=== PATIENT | male | born 1965 | race Caucasian/White ===

== ENCOUNTER 2017-03-17 14:11 | Inpatient (IN) | payer MEDICARE, OTHER ==
[~2017-03-17] VITALS: Ht 175.3 cm; Wt 90.7 kg
[~2017-03-17 14:11] MED LIST: COMBIVENT0.074 GM/I PO; DULERA 200 MCG8.8 GM PO; LEVEMIR100 UNIT/1 SC
[2017-03-17] MEDS ORDERED: NEURONTIN 300300 MG PO (17:13)
[2017-03-17] MEDS ORDERED: GLUCOPHAGE 500500 MG PO (17:14)
[2017-03-17] MEDS ORDERED: LISINOPRIL20 MG PO (17:14)
[2017-03-17] MEDS ORDERED: FOLTX TABLET1 EACH PO (17:15)
[2017-03-17] MEDS ORDERED: OSTERA TABLET1 EACH PO (17:16)
[2017-03-17] MEDS ORDERED: VIT C-BIOFLAVO1 EACH PO (17:17)
[2017-03-17] MEDS ORDERED: CALCIUM + D3 E1 EACH PO (17:17)
[2017-03-17] MEDS ORDERED: NORCO 7.5-3251 EACH PO (17:17)
[2017-03-17] MEDS ORDERED: BAYER CHEWABLE81 MG PO (17:18)
[2017-03-17 19:09] LABS: HEMOGLOBIN 13.8 gm/dl (14.0-17.5); RED BLOOD COUNT 4.5 M/UL (4.20-5.50); WHITE BLOOD COUNT 11.7 K/UL (4.5-11.0)
[2017-03-17 19:35] LABS: BUN/CREATININE RATIO 8 (0-10)
[2017-03-19 06:26] LABS: BUN/CREATININE RATIO 9 (0-10)
[2017-03-20 04:40] LABS: WHITE BLOOD COUNT 12.2 K/UL (4.5-11.0)
[2017-03-20 04:42] LABS: HEMOGLOBIN 11.8 gm/dl (14.0-17.5); RED BLOOD COUNT 3.9 M/UL (4.20-5.50)
[2017-03-20 05:01] LABS: BUN/CREATININE RATIO 13 (0-10)
[2017-03-21 05:36] LABS: RED BLOOD COUNT 4.02 M/UL (4.20-5.50)
[2017-03-21 06:00] LABS: BUN/CREATININE RATIO 13 (0-10)
[2017-03-22 04:57] LABS: RED BLOOD COUNT 3.73 M/UL (4.20-5.50); WHITE BLOOD COUNT 10.5 K/UL (4.5-11.0)
[2017-03-22 05:09] LABS: BUN/CREATININE RATIO 10 (0-10)
[2017-03-23 05:14] LABS: HEMOGLOBIN 11.3 gm/dl (14.0-17.5); RED BLOOD COUNT 3.81 M/UL (4.20-5.50); WHITE BLOOD COUNT 12.3 K/UL (4.5-11.0)
[2017-03-23 05:29] LABS: BUN/CREATININE RATIO 9 (0-10)
[2017-03-24 04:50] LABS: HEMOGLOBIN 12.7 gm/dl (14.0-17.5); WHITE BLOOD COUNT 11.6 K/UL (4.5-11.0)
[2017-03-24 04:53] LABS: RED BLOOD COUNT 4.22 M/UL (4.20-5.50)
[2017-03-24 05:13] LABS: BUN/CREATININE RATIO 9 (0-10)
[2017-03-25 03:09] LABS: HEMOGLOBIN 11.8 gm/dl (14.0-17.5); RED BLOOD COUNT 3.93 M/UL (4.20-5.50); WHITE BLOOD COUNT 11.3 K/UL (4.5-11.0)
[2017-03-25 03:31] LABS: BUN/CREATININE RATIO 10 (0-10)
[2017-03-26 04:47] LABS: HEMOGLOBIN 11.2 gm/dl (14.0-17.5); RED BLOOD COUNT 3.82 M/UL (4.20-5.50); WHITE BLOOD COUNT 11.3 K/UL (4.5-11.0)
[2017-03-26 04:57] LABS: BUN/CREATININE RATIO 17 (0-10)
[2017-03-26] MEDS ORDERED: NESINA25 MG PO (21:18)
[2017-03-26] MEDS ORDERED: LIPITOR40 MG PO (21:19)
[2017-03-26] MEDS ORDERED: LEVEMIR100 UNIT/1 SQ (21:20)
[2017-03-26] MEDS ORDERED: LOPRESSOR 25 MG25 MG PO (21:21)
[2017-03-26] MEDS ORDERED: PLAVIX 75 MG TA75 MG PO (21:22)
== END 2017-03-26 21:42 | disposition home or self-care (01) | DRG 617 ==
LOC: MED SURG 4 14:11
PROVIDERS: Internal Medicine; Podiatrist Foot & Ankle Surgery; ADMIT Emergency Medicine
PROC: B41D1ZZ Fluoroscopy of Aorta and Bilateral Lower Extremity Arteries using Low Osmolar Contrast (ICD-10-PCS; principal; 2017-03-20)
PROC: 047Q3ZZ Dilation of Left Anterior Tibial Artery, Percutaneous Approach (ICD-10-PCS; principal; 2017-03-20)
PROC: 0HRMXK3 Replacement of Right Foot Skin with Nonautologous Tissue Substitute, Full Thickness, External Approach (ICD-10-PCS; 2017-03-25)
PROC: 0HRNXK3 Replacement of Left Foot Skin with Nonautologous Tissue Substitute, Full Thickness, External Approach (ICD-10-PCS; 2017-03-25)
PROC: 3E00X29 Introduction of Other Anti-infective into Skin and Mucous Membranes, External Approach (ICD-10-PCS; 2017-03-25)
PROC: 0LBV0ZZ Excision of Right Foot Tendon, Open Approach (ICD-10-PCS; 2017-03-25)
PROC: 0Y6Y0Z1 Detachment at Left 5th Toe, High, Open Approach (ICD-10-PCS; 2017-03-25)
PROC: 0JBQ0ZZ Excision of Right Foot Subcutaneous Tissue and Fascia, Open Approach (ICD-10-PCS; 2017-03-25)
DX: E11.621 Type 2 diabetes mellitus with foot ulcer (principal); L97.429 Non-pressure chronic ulcer of left heel and midfoot with unspecified severity; M86.9 Osteomyelitis, unspecified; L03.116 Cellulitis of left lower limb; F20.0 Paranoid schizophrenia; I70.292 Other atherosclerosis of native arteries of extremities, left leg; E11.65 Type 2 diabetes mellitus with hyperglycemia; E11.42 Type 2 diabetes mellitus with diabetic polyneuropathy; L97.519 Non-pressure chronic ulcer of other part of right foot with unspecified severity; E11.69 Type 2 diabetes mellitus with other specified complication; F17.210 Nicotine dependence, cigarettes, uncomplicated; Z91.11 Patient's noncompliance with dietary regimen; Z91.14 Patient's other noncompliance with medication regimen; Z79.4 Long term (current) use of insulin; I10 Essential (primary) hypertension; E78.5 Hyperlipidemia, unspecified; I20.9 Angina pectoris, unspecified; G89.29 Other chronic pain; M54.5 Low back pain; K64.9 Unspecified hemorrhoids; J44.9 Chronic obstructive pulmonary disease, unspecified; Z89.411 Acquired absence of right great toe; Z86.14 Personal history of Methicillin resistant Staphylococcus aureus infection; Z80.0 Family history of malignant neoplasm of digestive organs; Z80.8 Family history of malignant neoplasm of other organs or systems; Z83.3 Family history of diabetes mellitus; R07.9 Chest pain, unspecified; H91.90 Unspecified hearing loss, unspecified ear; Z79.84 Long term (current) use of oral hypoglycemic drugs; Z79.82 Long term (current) use of aspirin; Z79.891 Long term (current) use of opiate analgesic; Z79.899 Other long term (current) drug therapy
CPT/HCPCS: ECHO; 36245; 36415; 73630; 73718; 75630; 78452; 80048; 80053; 80061; 80202; 82550; 82553; 82962; 83036; 84484; 85025; 85027; 85347; 85610; 85730; 86850; 86900; 86901; 87070; 87075; 87205; 93005; 93017; 93306; 93925; 94640; 94664; A9502; C1713; C1725; C1769; J1100; J1580; J1644; J2250; J2405; J2785; J3010; J3370; J7030; J7040; J7070; J7120; Q4133; Q9965

== ENCOUNTER → 2017-07-23 | Outpatient (CLI) | payer MEDICARE ==
[~2017-07-23] VITALS: Ht 175.3 cm; Wt 90.7 kg
[~2017-07-23] MED LIST changes: +BAYER CHEWABLE81 MG PO; +CALCIUM + D3 E1 EACH PO; +FOLTX TABLET1 EACH PO; +GLUCOPHAGE 500500 MG PO; +LEVEMIR100 UNIT/1 SQ; +LIPITOR40 MG PO; +LISINOPRIL20 MG PO; +LOPRESSOR 25 MG25 MG PO; +NESINA25 MG PO; +NEURONTIN 300300 MG PO; +NORCO 7.5-3251 EACH PO; +OSTERA TABLET1 EACH PO; +PLAVIX 75 MG TA75 MG PO; +VIT C-BIOFLAVO1 EACH PO
== END ==
LOC: OPSV 08:00
DX: E11.40 Type 2 diabetes mellitus with diabetic neuropathy, unspecified (principal); M86.171 Other acute osteomyelitis, right ankle and foot; L08.89 Other specified local infections of the skin and subcutaneous tissue; L03.115 Cellulitis of right lower limb; L97.512 Non-pressure chronic ulcer of other part of right foot with fat layer exposed; M79.671 Pain in right foot; M79.604 Pain in right leg
CPT/HCPCS: 96365; 96366; J2407; J7070

== ENCOUNTER 2020-11-16 00:22 | Inpatient (IN) | payer MEDICARE, MEDICAID ==
[~2020-11-16] VITALS: Ht 177.8 cm; Wt 99.3 kg
[~2020-11-16 00:22] MED LIST changes: +AMOX TR-K CLV1 EAC3 PO; +ASPIR 8181 MG PO; +ASPIRIN EC81 MG PO; +ASPIRIN81 MG PO; +ATORVASTATIN CA20 MG PO; +AUGMENTIN 875-1 EACH PO; +BUMEX 1MG TABLET1 MG PO; +CALCIUM ACETAT667 M1 PO; +CHRONULAC20 GM/30 M PO; +CLOPIDOGREL75 MG PO; +CONSTULOSE10 GM/15 M PO; +FERROUS SULFAT325 M2 PO; +FISH OIL 1,0001 EAC1 PO; +FLOMAX 0.4 MG0.4 MG PO; +GABAPENTIN300 MG PO; +HUMALOG 10100 UNITS/ SC; +HYDRALAZINE HCL25 MG PO; +IMDUR ER TAB 3030 MG PO; +IPRAT-ALBUT 0.5-3 ML NEB; +KRISTALOSE20 GM PO; +LANTUS INS100 UTS/M1 SC; +LASIX20 MG PO; +LEVAQUIN500 MG PO; +LEVAQUIN750 MG PO; +LEVEMIR FL100 UNIT/1 SQ; +LOPRESSOR 50 MG50 MG PO; +NEBULIZER UNIT; +NEURONTIN800 MG PO; +NICOTINE PATCH1 EAC2 TD; +NICOTINE PATCH1 EAC2 TOP; +NORCO 10-325 T1 EACH PO; -NORCO 7.5-3251 EACH PO; +PANTOPRAZOLE SO40 MG PO; +SYMBICORT 160-1 INHA INH; +VITAMIN C 500500 MG PO; +VITAMIN C500 M1 PO; +VITAMIN D1000 UNI1 PO; +VITAMIN D325 MCG PO
[2020-11-16 03:04] LABS: HEMOGLOBIN 11.4 gm/dl (14.0-17.5); RED BLOOD COUNT 3.82 M/UL (4.20-5.50); WHITE BLOOD COUNT 8.5 K/UL (4.5-11.0)
[2020-11-16 03:42] LABS: BUN/CREATININE RATIO 6 (0-10)
[2020-11-16] MEDS ORDERED: CALCIUM ACETAT667 M1 PO (23:09)
--- NOTE | 2020-11-17 05:17 | NUR ---
0500 [facility] NOTIFIED ME THAT PATIENT WAS SITTING IN THE FLOOR. I ASKED THE PATIENT IF HE HAD FALLEN AND HE STATED THAT HE WAS USING THE BEDSIDE COMMODE AND THEN SLIPPED OFF OF IT INTO THE FLOOR. PATIENT ASSESSED, NO TRAUMA NOTED. DR. BARBOSA NOTIFIED AT 0515 AND GAVE NO NEW ORDERS. PATIENT HAD BEEN USING HIS CALL LIGHT ALL NIGHT FOR ASSISTANCE AND IS ALERT AND ORIENTED. CALL LIGHT WAS ALSO WITHIN REACH IN HIS BED. WHEN I ASKED THE PATIENT WHY HE DID NOT CALL OUT THIS TIME, HE STATED "IT IS EMBARRASSING AND I DID NOT WANT TO BE A BURDEN." REASSURED PATIENT THAT HE WAS NOT A BURDEN AND THAT HE NEEDED TO CALL OUT FOR HELP. EDUCATED PATIENT ON WHY USING THE CALL DUENAS WAS IMPORTANT. PATIENT SCORED UNIVERSAL PRECAUTIONS ON THE JOSEPH FALL SCALE UPON ADMISSION. BED ALARM IS NOW TURNED ON, YELLOW FALL RISK LIGHT IS TURNED ON, FALL RISK BAND APPLIED, AND YELLOW NON-SKID SOCKS WERE APPLIED TO THE PATIENT.
[2020-11-17 05:41] LABS: HEMOGLOBIN 10.1 gm/dl (14.0-17.5); WHITE BLOOD COUNT 7.6 K/UL (4.5-11.0)
[2020-11-17 05:43] LABS: RED BLOOD COUNT 3.38 M/UL (4.20-5.50)
--- NOTE | 2020-11-17 05:55 | NUR ---
0571 [facility] [employer] MANAGER NOTIFIED OF PATIENT FALL
--- NOTE | 2020-11-17 06:12 | NUR ---
HOME MEDS HAVE NOT BEEN RECONCILED YET WHICH IS WHY THEY WERE NOT SCANNED TO PHARMACY FOR REVIEW
[2020-11-18 07:08] LABS: HEMOGLOBIN 10.2 gm/dl (14.0-17.5); RED BLOOD COUNT 3.41 M/UL (4.20-5.50); WHITE BLOOD COUNT 7.3 K/UL (4.5-11.0)
[2020-11-19 08:10] LABS: HBSAG SCREEN Negative (Negative)
[2020-11-20 03:53] LABS: HEMOGLOBIN 9.2 gm/dl (14.0-17.5); RED BLOOD COUNT 3.1 M/UL (4.20-5.50); WHITE BLOOD COUNT 6.7 K/UL (4.5-11.0)
[2020-11-20] MEDS ORDERED: GABAPENTIN400 MG PO (08:51)
[2021-02-19] MEDS ORDERED: LEVOFLOXACIN500 MG PO (09:30)
[2021-02-19] MEDS ORDERED: IPRAT-ALBUT 0.5-3 ML NEB (09:30)
== END 2020-11-20 18:15 | disposition home health service (06) | DRG 291 ==
LOC: ER1 00:22 → CDU 05:11 → M/S 05:11
PROVIDERS: Family Medicine; Internal Medicine; Internal Medicine Nephrology; Physician Assistant; Physician Assistant Medical; ADMIT Internal Medicine
PROC: 5A1D70Z Performance of Urinary Filtration, Intermittent, Less than 6 Hours Per Day (ICD-10-PCS; principal; 2020-11-16)
PROC: 5A1D70Z Performance of Urinary Filtration, Intermittent, Less than 6 Hours Per Day (ICD-10-PCS; 2020-11-20)
DX: I13.2 Hypertensive heart and chronic kidney disease with heart failure and with stage 5 chronic kidney disease, or end stage renal disease (principal); N18.6 End stage renal disease; I50.33 Acute on chronic diastolic (congestive) heart failure; I50.32 Chronic diastolic (congestive) heart failure; Z91.15 Patient's noncompliance with renal dialysis; J44.9 Chronic obstructive pulmonary disease, unspecified; I51.9 Heart disease, unspecified; I10 Essential (primary) hypertension; F17.210 Nicotine dependence, cigarettes, uncomplicated; Z83.3 Family history of diabetes mellitus; Z82.49 Family history of ischemic heart disease and other diseases of the circulatory system; Z20.822 Contact with and (suspected) exposure to COVID-19; M13.862 Other specified arthritis, left knee; E11.22 Type 2 diabetes mellitus with diabetic chronic kidney disease; Z99.2 Dependence on renal dialysis; R60.1 Generalized edema; E11.621 Type 2 diabetes mellitus with foot ulcer; L97.529 Non-pressure chronic ulcer of other part of left foot with unspecified severity; E11.51 Type 2 diabetes mellitus with diabetic peripheral angiopathy without gangrene; E11.610 Type 2 diabetes mellitus with diabetic neuropathic arthropathy; F20.9 Schizophrenia, unspecified; Z96.651 Presence of right artificial knee joint; D64.9 Anemia, unspecified; Z99.3 Dependence on wheelchair; K21.9 Gastro-esophageal reflux disease without esophagitis; Z79.4 Long term (current) use of insulin; M51.36 Other intervertebral disc degeneration, lumbar region
CPT/HCPCS: 36415; 71045; 73562; 73630; 80048; 80053; 80202; 82550; 82553; 82962; 83874; 84484; 85025; 85027; 85652; 86140; 87040; 87070; 87077; 87186; 87205; 87340; 90471; 90935; 90937; 93005; 96374; 97161; 99285; J1335; J3370; J7030; J7070; U0002

== ENCOUNTER 2020-11-29 10:31 | Observation (INO) | payer MEDICARE ==
[~2020-11-29] VITALS: Ht 175.3 cm; Wt 99.8 kg
[~2020-11-29 10:31] MED LIST changes: +GABAPENTIN400 MG PO
[2020-11-29 11:35] LABS: HEMOGLOBIN 10.4 gm/dl (14.0-17.5); RED BLOOD COUNT 3.48 M/UL (4.20-5.50); WHITE BLOOD COUNT 6.6 K/UL (4.5-11.0)
[2020-11-29 12:06] LABS: BUN/CREATININE RATIO 9 (0-10)
[2020-11-29] MEDS ORDERED: NEURONTIN800 MG PO (14:16)
[2020-11-29] MEDS ORDERED: LEVEMIR100 UNIT/1 SC (14:19)
[2020-11-29] MEDS ORDERED: CITRATE OF MAG296 ML PO (14:20)
[2020-11-29] MEDS ORDERED: LOPRESSOR50 MG PO (23:13)
[2020-11-30 02:34] LABS: HEMOGLOBIN 8.9 gm/dl (14.0-17.5); WHITE BLOOD COUNT 6.6 K/UL (4.5-11.0)
[2020-11-30 02:43] LABS: RED BLOOD COUNT 2.97 M/UL (4.20-5.50)
[2020-12-01 03:06] LABS: HEMOGLOBIN 8.2 gm/dl (14.0-17.5); RED BLOOD COUNT 2.73 M/UL (4.20-5.50); WHITE BLOOD COUNT 6.6 K/UL (4.5-11.0)
[2020-12-01] MEDS ORDERED: LEVOFLOXACIN500 MG PO (08:44)
[2020-12-01] MEDS ORDERED: INVANZ 1 GM VIAL1 GM IM (10:44)
[2021-02-19] MEDS ORDERED: LEVOFLOXACIN500 MG PO (09:30)
[2021-02-19] MEDS ORDERED: IPRAT-ALBUT 0.5-3 ML NEB (09:30)
== END 2020-12-01 12:00 | disposition home or self-care (01) ==
LOC: ER1 10:31 → CDU 13:24 → PROG CARE 13:24
PROVIDERS: Emergency Medicine; Internal Medicine Nephrology; Physician Assistant Medical; ADMIT Internal Medicine
DX: J96.21 Acute and chronic respiratory failure with hypoxia (principal); J96.22 Acute and chronic respiratory failure with hypercapnia; L03.116 Cellulitis of left lower limb; L03.115 Cellulitis of right lower limb; E11.621 Type 2 diabetes mellitus with foot ulcer; L97.429 Non-pressure chronic ulcer of left heel and midfoot with unspecified severity; L97.419 Non-pressure chronic ulcer of right heel and midfoot with unspecified severity; I13.2 Hypertensive heart and chronic kidney disease with heart failure and with stage 5 chronic kidney disease, or end stage renal disease; E11.22 Type 2 diabetes mellitus with diabetic chronic kidney disease; N18.6 End stage renal disease; I50.33 Acute on chronic diastolic (congestive) heart failure; E11.51 Type 2 diabetes mellitus with diabetic peripheral angiopathy without gangrene; M86.671 Other chronic osteomyelitis, right ankle and foot; F20.9 Schizophrenia, unspecified; E11.40 Type 2 diabetes mellitus with diabetic neuropathy, unspecified; E87.5 Hyperkalemia; F17.210 Nicotine dependence, cigarettes, uncomplicated; I25.10 Atherosclerotic heart disease of native coronary artery without angina pectoris; J44.1 Chronic obstructive pulmonary disease with (acute) exacerbation; E78.5 Hyperlipidemia, unspecified; Z99.2 Dependence on renal dialysis; Z91.15 Patient's noncompliance with renal dialysis; Z20.822 Contact with and (suspected) exposure to COVID-19; Z89.421 Acquired absence of other right toe(s); Z82.49 Family history of ischemic heart disease and other diseases of the circulatory system; Z88.1 Allergy status to other antibiotic agents; Z79.82 Long term (current) use of aspirin; Z79.4 Long term (current) use of insulin; Z79.899 Other long term (current) drug therapy
CPT/HCPCS: 36415; 36600; 71045; 80048; 80053; 80069; 81001; 82550; 82553; 82728; 82803; 82962; 83540; 83550; 83605; 83735; 83874; 83880; 84132; 84484; 85025; 85027; 87040; 87070; 87077; 87186; 87205; 90471; 90935; 93005; 94640; 94660; 94664; 94760; 96365; 96375; 99285; G0257; G0378; J1335; J1644; J1956; J3370; J7030; J7070; U0002

== ENCOUNTER 2020-12-18 05:08 | Inpatient (IN) | payer MEDICARE, MEDICAID ==
[~2020-12-18] VITALS: Ht 175.3 cm; Wt 107.3 kg
[~2020-12-18 05:08] MED LIST changes: +CITRATE OF MAG296 ML PO; +INVANZ 1 GM VIAL1 GM IM; +LEVOFLOXACIN500 MG PO; +LOPRESSOR50 MG PO
[2020-12-18 05:24] LABS: HEMOGLOBIN 9.4 gm/dl (14.0-17.5); RED BLOOD COUNT 3.19 M/UL (4.20-5.50); WHITE BLOOD COUNT 10.8 K/UL (4.5-11.0)
--- NOTE | 2020-12-19 01:09 | NUR ---
PATIENT IS NON COMPLIANT WITH MONITORING. INSTRUCTED PATIENT NOT TO AMBULATE WITHOUT ASSISTANCE, PATIENT AGREED ALTHOUGH PATIENT IS IMPULSIVE. EXPLAINED THE POSSIBILITY OF FALLS, PATIENT VERBALIZED UNDERSTANDING. PT IS CURRENTLY LAYING DOWN ON THE COUCH IN HIS ROOM, CALL DUENAS IS WITHIN REACH. INSTRUCTED PATIENT TO CALL FOR WANTS/NEEDS/AMBULATION.
[2020-12-19 02:28] LABS: HEMOGLOBIN 8.4 gm/dl (14.0-17.5)
[2020-12-19 02:32] LABS: RED BLOOD COUNT 2.81 M/UL (4.20-5.50); WHITE BLOOD COUNT 6.9 K/UL (4.5-11.0)
--- NOTE | 2020-12-19 06:44 | NUR ---
SPOKE WITH PATIENT'S , JASON, AT APPROXIMATELY 0430; SHE IS CONCERNED THAT THE PATIENT WILL BE DISCHARGED TOO EARLY AND WOULD LIKE FOR HIM TO STAY THROUGH THE ICE STORM LATER THIS WEEK. PATIENT HAS BECOME INCREASINGLY CONFUSED THROUGHOUT THE NIGHT AND HAS NOT SLEPT.
[2020-12-19 11:15] LABS: HBSAG SCREEN Negative (Negative); HEP A AB, IGM Negative (Negative); HEP B CORE AB, IGM Negative (Negative); HEP C VIRUS AB 0.1 (0.0-0.9)
[2020-12-20] MEDS ORDERED: PROTONIX 40 MG40 M1 PO (11:05)
[2020-12-20] MEDS ORDERED: NICOTINE PATCH1 EAC2 TD (11:05)
[2021-02-19] MEDS ORDERED: IPRAT-ALBUT 0.5-3 ML NEB (09:30)
[2021-02-19] MEDS ORDERED: LEVOFLOXACIN500 MG PO (09:30)
== END 2020-12-20 16:37 | disposition home or self-care (01) | DRG 291 ==
LOC: ER1 05:08 → PROG CARE 07:11 → CDU 07:11 → PROG CARE 15:47
PROVIDERS: Emergency Medicine; Internal Medicine Nephrology; ADMIT Hospitalist
PROC: 5A1D70Z Performance of Urinary Filtration, Intermittent, Less than 6 Hours Per Day (ICD-10-PCS; principal; 2020-12-18)
PROC: 5A1D70Z Performance of Urinary Filtration, Intermittent, Less than 6 Hours Per Day (ICD-10-PCS; 2020-12-19)
DX: I13.2 Hypertensive heart and chronic kidney disease with heart failure and with stage 5 chronic kidney disease, or end stage renal disease (principal); N18.6 End stage renal disease; I50.33 Acute on chronic diastolic (congestive) heart failure; Z20.822 Contact with and (suspected) exposure to COVID-19; E11.22 Type 2 diabetes mellitus with diabetic chronic kidney disease; E11.621 Type 2 diabetes mellitus with foot ulcer; J44.9 Chronic obstructive pulmonary disease, unspecified; E11.51 Type 2 diabetes mellitus with diabetic peripheral angiopathy without gangrene; F20.9 Schizophrenia, unspecified; D64.9 Anemia, unspecified; G89.29 Other chronic pain; E11.21 Type 2 diabetes mellitus with diabetic nephropathy; M51.36 Other intervertebral disc degeneration, lumbar region; E11.40 Type 2 diabetes mellitus with diabetic neuropathy, unspecified; Z96.651 Presence of right artificial knee joint; Z95.820 Peripheral vascular angioplasty status with implants and grafts; Z99.2 Dependence on renal dialysis; Z89.429 Acquired absence of other toe(s), unspecified side; Z88.1 Allergy status to other antibiotic agents; Z99.81 Dependence on supplemental oxygen; Z91.15 Patient's noncompliance with renal dialysis; Z80.0 Family history of malignant neoplasm of digestive organs; Z83.3 Family history of diabetes mellitus; Z87.891 Personal history of nicotine dependence; Z79.82 Long term (current) use of aspirin; Z79.899 Other long term (current) drug therapy
CPT/HCPCS: 36415; 36600; 71045; 80048; 80053; 80074; 80202; 82550; 82553; 82728; 82803; 82962; 83540; 83550; 84484; 85025; 85027; 87040; 90935; 90937; 93005; 94640; 94660; 94664; 94760; 96365; 96366; 96368; 96375; 99285; J1200; J2185; J2405; J3370; J7030; J7070; U0002

== ENCOUNTER 2020-12-24 21:10 | Inpatient (IN) | payer MEDICARE ==
[~2020-12-24] VITALS: Ht 175.3 cm; Wt 99.8 kg
[~2020-12-24 21:10] MED LIST changes: +PROTONIX 40 MG40 M1 PO
[2020-12-24 21:55] LABS: HEMOGLOBIN 8.5 gm/dl (14.0-17.5); RED BLOOD COUNT 2.84 M/UL (4.20-5.50); WHITE BLOOD COUNT 7.7 K/UL (4.5-11.0)
[2020-12-24 22:20] LABS: BUN/CREATININE RATIO 8 (0-10)
[2020-12-26 04:21] LABS: HEMOGLOBIN 7.6 gm/dl (14.0-17.5)
[2020-12-26 04:26] LABS: RED BLOOD COUNT 2.53 M/UL (4.20-5.50); WHITE BLOOD COUNT 3.7 K/UL (4.5-11.0)
[2020-12-27 03:25] LABS: HEMOGLOBIN 7.9 gm/dl (14.0-17.5); RED BLOOD COUNT 2.64 M/UL (4.20-5.50)
[2020-12-27 03:34] LABS: WHITE BLOOD COUNT 5.6 K/UL (4.5-11.0)
[2020-12-28 04:25] LABS: HEMOGLOBIN 7.9 gm/dl (14.0-17.5); RED BLOOD COUNT 2.62 M/UL (4.20-5.50); WHITE BLOOD COUNT 6.4 K/UL (4.5-11.0)
[2020-12-30 06:09] LABS: HEMOGLOBIN 8.3 gm/dl (14.0-17.5); RED BLOOD COUNT 2.79 M/UL (4.20-5.50); WHITE BLOOD COUNT 5.8 K/UL (4.5-11.0)
[2020-12-31 04:47] LABS: HEMOGLOBIN 8.7 gm/dl (14.0-17.5); RED BLOOD COUNT 2.93 M/UL (4.20-5.50)
[2020-12-31 04:58] LABS: WHITE BLOOD COUNT 7.6 K/UL (4.5-11.0)
[2020-12-31] MEDS ORDERED: DECADRON6 MG PO (19:22)
[2020-12-31] MEDS ORDERED: NORVASC10 MG PO (19:22)
--- NOTE | 2021-01-01 10:19 | NUR ---
0900 MEDICATION NOT GIVEN DUE TO PATIENT GONE TO DIALYSIS
[2021-02-19] MEDS ORDERED: LEVOFLOXACIN500 MG PO (09:30)
[2021-02-19] MEDS ORDERED: IPRAT-ALBUT 0.5-3 ML NEB (09:30)
== END 2021-01-01 17:47 | disposition home or self-care (01) | DRG 177 ==
LOC: ER1 21:10 → MED SURG 4 23:57 → CDU 23:57 → MED SURG 4 12-25 21:02
PROVIDERS: Family Medicine; Internal Medicine Infectious Disease; ADMIT Internal Medicine
PROC: 8E0ZXY6 Isolation (ICD-10-PCS; principal; 2020-12-24)
PROC: XW033E5 Introduction of Remdesivir Anti-infective into Peripheral Vein, Percutaneous Approach, New Technology Group 5 (ICD-10-PCS; 2020-12-27)
PROC: XW13325 Transfusion of Convalescent Plasma (Nonautologous) into Peripheral Vein, Percutaneous Approach, New Technology Group 5 (ICD-10-PCS; 2020-12-29)
DX: U07.1 COVID-19 (principal); J12.82 Pneumonia due to coronavirus disease 2019; J96.21 Acute and chronic respiratory failure with hypoxia; I50.33 Acute on chronic diastolic (congestive) heart failure; N18.6 End stage renal disease; I13.2 Hypertensive heart and chronic kidney disease with heart failure and with stage 5 chronic kidney disease, or end stage renal disease; L03.119 Cellulitis of unspecified part of limb; E11.22 Type 2 diabetes mellitus with diabetic chronic kidney disease; J44.9 Chronic obstructive pulmonary disease, unspecified; R00.1 Bradycardia, unspecified; D63.1 Anemia in chronic kidney disease; E11.40 Type 2 diabetes mellitus with diabetic neuropathy, unspecified; G89.4 Chronic pain syndrome; E87.5 Hyperkalemia; K21.9 Gastro-esophageal reflux disease without esophagitis; E11.51 Type 2 diabetes mellitus with diabetic peripheral angiopathy without gangrene; E11.65 Type 2 diabetes mellitus with hyperglycemia; T38.0X5A Adverse effect of glucocorticoids and synthetic analogues, initial encounter; K59.00 Constipation, unspecified; Z96.651 Presence of right artificial knee joint; F20.9 Schizophrenia, unspecified; E11.21 Type 2 diabetes mellitus with diabetic nephropathy; E11.649 Type 2 diabetes mellitus with hypoglycemia without coma; M51.36 Other intervertebral disc degeneration, lumbar region; Z88.1 Allergy status to other antibiotic agents; Z80.9 Family history of malignant neoplasm, unspecified; Z99.81 Dependence on supplemental oxygen; Z95.820 Peripheral vascular angioplasty status with implants and grafts; Z99.2 Dependence on renal dialysis; Z91.15 Patient's noncompliance with renal dialysis; Z83.3 Family history of diabetes mellitus; Z89.429 Acquired absence of other toe(s), unspecified side; Z87.891 Personal history of nicotine dependence; Z79.82 Long term (current) use of aspirin; Z79.899 Other long term (current) drug therapy
CPT/HCPCS: 36415; 36600; 71045; 80048; 80053; 82550; 82553; 82803; 82962; 83690; 83874; 83880; 84484; 85025; 86900; 86901; 86927; 90935; 90937; 93005; 94660; 94664; 94760; 96365; 96366; 96368; 99285; G0378; J0610; J1100; J1644; J7030; Q5105; U0002; U0003

== ENCOUNTER 2021-01-02 21:06 | Inpatient (IN) | payer MEDICARE ==
[~2021-01-02] VITALS: Ht 172.7 cm; Wt 110.0 kg
[~2021-01-02 21:06] MED LIST changes: +DECADRON6 MG PO; +NORVASC10 MG PO
[2021-01-02 22:17] LABS: HEMOGLOBIN 8.9 gm/dl (14.0-17.5); RED BLOOD COUNT 2.92 M/UL (4.20-5.50)
[2021-01-02 22:18] LABS: WHITE BLOOD COUNT 17.5 K/UL (4.5-11.0)
[2021-01-03 01:48] LABS: HEMOGLOBIN 8.5 gm/dl (14.0-17.5); WHITE BLOOD COUNT 17.1 K/UL (4.5-11.0)
[2021-01-03 01:50] LABS: RED BLOOD COUNT 2.48 M/UL (4.20-5.50)
[2021-01-05] MEDS ORDERED: COZAAR 25MG TAB25 MG PO (10:50)
[2021-01-05] MEDS ORDERED: GABAPENTIN300 MG PO (10:50)
[2021-02-19] MEDS ORDERED: IPRAT-ALBUT 0.5-3 ML NEB (09:30)
[2021-02-19] MEDS ORDERED: LEVOFLOXACIN500 MG PO (09:30)
== END 2021-01-05 13:44 | disposition home or self-care (01) | DRG 208 ==
LOC: ER1 21:06 → CDU 23:20 → CCU 23:20 → 2 EAST 01-03 00:36 → CCU 01-03 02:37
PROVIDERS: Emergency Medicine; Internal Medicine Nephrology; ADMIT Internal Medicine
PROC: 5A1945Z Respiratory Ventilation, 24-96 Consecutive Hours (ICD-10-PCS; principal; 2021-01-02)
PROC: 0BH17EZ Insertion of Endotracheal Airway into Trachea, Via Natural or Artificial Opening (ICD-10-PCS; 2021-01-02)
PROC: 5A1D70Z Performance of Urinary Filtration, Intermittent, Less than 6 Hours Per Day (ICD-10-PCS; 2021-01-03)
DX: J96.01 Acute respiratory failure with hypoxia (principal); N18.6 End stage renal disease; I13.2 Hypertensive heart and chronic kidney disease with heart failure and with stage 5 chronic kidney disease, or end stage renal disease; I50.32 Chronic diastolic (congestive) heart failure; E87.1 Hypo-osmolality and hyponatremia; E87.70 Fluid overload, unspecified; I10 Essential (primary) hypertension; Z86.16 Personal history of COVID-19; E11.22 Type 2 diabetes mellitus with diabetic chronic kidney disease; E11.621 Type 2 diabetes mellitus with foot ulcer; L97.529 Non-pressure chronic ulcer of other part of left foot with unspecified severity; L97.519 Non-pressure chronic ulcer of other part of right foot with unspecified severity; E11.51 Type 2 diabetes mellitus with diabetic peripheral angiopathy without gangrene; F20.9 Schizophrenia, unspecified; D72.829 Elevated white blood cell count, unspecified; F17.210 Nicotine dependence, cigarettes, uncomplicated; Z96.651 Presence of right artificial knee joint; Z91.19 Patient's noncompliance with other medical treatment and regimen; Z98.890 Other specified postprocedural states; Z88.1 Allergy status to other antibiotic agents; Z83.3 Family history of diabetes mellitus; Z80.9 Family history of malignant neoplasm, unspecified; I27.20 Pulmonary hypertension, unspecified; J44.9 Chronic obstructive pulmonary disease, unspecified
CPT/HCPCS: 31500; 36415; 36600; 71045; 80048; 80053; 81001; 82550; 82553; 82803; 82962; 83874; 83880; 84484; 85025; 87086; 90935; 90937; 93005; 94002; 94003; 94640; 94760; 96374; 99285; C9113; G0378; J1100; J1644; J2704

== ENCOUNTER 2021-01-11 19:52 | Emergency (ER) | payer MEDICARE ==
[~2021-01-11] VITALS: Ht 180.3 cm; Wt 99.8 kg
[~2021-01-11 19:52] MED LIST changes: +COZAAR 25MG TAB25 MG PO
[2021-01-11 21:01] LABS: RED BLOOD COUNT 3.01 M/UL (4.20-5.50); WHITE BLOOD COUNT 12.7 K/UL (4.5-11.0)
[2021-01-11 21:24] LABS: BUN/CREATININE RATIO 12 (0-10)
[2021-01-12 04:57] LABS: HEMOGLOBIN 7.7 gm/dl (14.0-17.5)
[2021-01-12 05:00] LABS: RED BLOOD COUNT 2.54 M/UL (4.20-5.50); WHITE BLOOD COUNT 8.6 K/UL (4.5-11.0)
[2021-02-19] MEDS ORDERED: LEVOFLOXACIN500 MG PO (09:30)
[2021-02-19] MEDS ORDERED: IPRAT-ALBUT 0.5-3 ML NEB (09:30)
== END 2021-01-12 17:53 | disposition home or self-care (01) ==
LOC: ER1 19:52 → CDU 23:17 → ER1 23:17 → CDU 01-12 17:30 → ER1 01-12 17:53
PROVIDERS: Emergency Medicine; Internal Medicine
DX: U07.1 COVID-19 (principal); I13.2 Hypertensive heart and chronic kidney disease with heart failure and with stage 5 chronic kidney disease, or end stage renal disease; I50.32 Chronic diastolic (congestive) heart failure; E11.51 Type 2 diabetes mellitus with diabetic peripheral angiopathy without gangrene; E11.22 Type 2 diabetes mellitus with diabetic chronic kidney disease; L97.529 Non-pressure chronic ulcer of other part of left foot with unspecified severity; E11.621 Type 2 diabetes mellitus with foot ulcer; E66.01 Morbid (severe) obesity due to excess calories; J44.9 Chronic obstructive pulmonary disease, unspecified; E87.5 Hyperkalemia; F20.9 Schizophrenia, unspecified; M51.36 Other intervertebral disc degeneration, lumbar region; J96.02 Acute respiratory failure with hypercapnia; J96.01 Acute respiratory failure with hypoxia; N18.6 End stage renal disease; E11.42 Type 2 diabetes mellitus with diabetic polyneuropathy; Z88.1 Allergy status to other antibiotic agents; Z83.3 Family history of diabetes mellitus; Z79.82 Long term (current) use of aspirin; Z80.9 Family history of malignant neoplasm, unspecified; Z87.01 Personal history of pneumonia (recurrent); Z87.2 Personal history of diseases of the skin and subcutaneous tissue; Z79.899 Other long term (current) drug therapy; Z91.15 Patient's noncompliance with renal dialysis; Z91.19 Patient's noncompliance with other medical treatment and regimen; Z68.30 Body mass index [BMI] 30.0-30.9, adult
CPT/HCPCS: 36600; 71045; 80048; 80053; 82550; 82553; 82803; 82962; 83605; 83690; 83735; 83874; 83880; 84100; 84484; 85025; 87040; 90471; 90937; 93005; 94644; 94660; 94760; 96365; 96366; 96367; 96372; 96375; 96376; 99285; G0257; J1644; J1956; J3370; J7070; U0002

== ENCOUNTER 2021-01-31 04:10 | Inpatient (IN) | payer MEDICARE ==
[~2021-01-31] VITALS: Ht 175.3 cm; Wt 99.8 kg
[2021-01-31 04:33] LABS: HEMOGLOBIN 8.7 gm/dl (14.0-17.5); RED BLOOD COUNT 2.97 M/UL (4.20-5.50); WHITE BLOOD COUNT 14.4 K/UL (4.5-11.0)
[2021-01-31] MEDS ORDERED: ZOFRAN4 MG PO (04:57)
[2021-01-31] MEDS ORDERED: FLOMAX0.4 MG PO (04:57)
[2021-01-31] MEDS ORDERED: TORADOL 10 MG T10 MG PO (04:57)
[2021-01-31] MEDS ORDERED: ALBUTEROL1.25 MG/3 INH (09:35)
[2021-02-01 03:34] LABS: HEMOGLOBIN 7.8 gm/dl (14.0-17.5); RED BLOOD COUNT 2.73 M/UL (4.20-5.50)
[2021-02-01 03:38] LABS: WHITE BLOOD COUNT 6.8 K/UL (4.5-11.0)
[2021-02-19] MEDS ORDERED: IPRAT-ALBUT 0.5-3 ML NEB (09:30)
[2021-02-19] MEDS ORDERED: LEVOFLOXACIN500 MG PO (09:30)
== END 2021-02-01 17:47 | disposition home or self-care (01) | DRG 291 ==
LOC: ER1 04:10 → CDU 05:49 → M/S 16:22
PROVIDERS: Internal Medicine; ADMIT Internal Medicine
PROC: 5A1D70Z Performance of Urinary Filtration, Intermittent, Less than 6 Hours Per Day (ICD-10-PCS; principal; 2021-02-01)
DX: I13.2 Hypertensive heart and chronic kidney disease with heart failure and with stage 5 chronic kidney disease, or end stage renal disease (principal); N18.6 End stage renal disease; J96.21 Acute and chronic respiratory failure with hypoxia; I50.33 Acute on chronic diastolic (congestive) heart failure; I50.32 Chronic diastolic (congestive) heart failure; E87.1 Hypo-osmolality and hyponatremia; E87.70 Fluid overload, unspecified; J44.9 Chronic obstructive pulmonary disease, unspecified; E11.22 Type 2 diabetes mellitus with diabetic chronic kidney disease; E11.42 Type 2 diabetes mellitus with diabetic polyneuropathy; Z20.822 Contact with and (suspected) exposure to COVID-19; F17.210 Nicotine dependence, cigarettes, uncomplicated; F20.9 Schizophrenia, unspecified; E87.5 Hyperkalemia; M47.816 Spondylosis without myelopathy or radiculopathy, lumbar region; D64.9 Anemia, unspecified; Z83.3 Family history of diabetes mellitus; Z99.2 Dependence on renal dialysis; Z86.16 Personal history of COVID-19; Z99.81 Dependence on supplemental oxygen; Z88.1 Allergy status to other antibiotic agents; Z80.9 Family history of malignant neoplasm, unspecified; Z91.14 Patient's other noncompliance with medication regimen
CPT/HCPCS: 36415; 36600; 71045; 80048; 80053; 82803; 82962; 83605; 83880; 84484; 85025; 85610; 85730; 86140; 90935; 93005; 94660; 96365; 96366; 96375; 99285; J1940; J2543; U0002

== ENCOUNTER 2021-02-18 05:14 | Inpatient (IN) | payer MEDICARE ==
[~2021-02-18] VITALS: Ht 175.3 cm; Wt 99.8 kg
[~2021-02-18 05:14] MED LIST changes: +ALBUTEROL1.25 MG/3 INH; +FLOMAX0.4 MG PO; +TORADOL 10 MG T10 MG PO; +ZOFRAN4 MG PO
[2021-02-18 05:51] LABS: RED BLOOD COUNT 3.16 M/UL (4.20-5.50); WHITE BLOOD COUNT 16.1 K/UL (4.5-11.0)
[2021-02-18 06:11] LABS: BUN/CREATININE RATIO 7 (0-10)
[2021-02-18] MEDS ORDERED: NEURONTIN800 MG PO (11:19)
[2021-02-18] MEDS ORDERED: NORVASC5 MG PO (12:00)
[2021-02-19 08:13] LABS: HBSAG SCREEN Negative (Negative); HEP A AB, IGM Negative (Negative); HEP B CORE AB, IGM Negative (Negative); HEP C VIRUS AB <0.1 (0.0-0.9)
[2021-02-19 09:11] LABS: HEMOGLOBIN 8.4 gm/dl (14.0-17.5); RED BLOOD COUNT 3.03 M/UL (4.20-5.50)
[2021-02-19 09:13] LABS: WHITE BLOOD COUNT 10.2 K/UL (4.5-11.0)
[2021-02-19] MEDS ORDERED: LEVOFLOXACIN500 MG PO (09:30)
[2021-02-19] MEDS ORDERED: IPRAT-ALBUT 0.5-3 ML NEB (09:30)
== END 2021-02-19 13:53 | disposition home or self-care (01) | DRG 291 ==
LOC: ER1 05:14 → CDU 06:00 → PROG CARE 06:00
PROVIDERS: Family Medicine; Internal Medicine Nephrology; ADMIT Internal Medicine
PROC: 5A09357 Assistance with Respiratory Ventilation, Less than 24 Consecutive Hours, Continuous Positive Airway Pressure (ICD-10-PCS; principal; 2021-02-18)
DX: I13.2 Hypertensive heart and chronic kidney disease with heart failure and with stage 5 chronic kidney disease, or end stage renal disease (principal); I50.23 Acute on chronic systolic (congestive) heart failure; J96.01 Acute respiratory failure with hypoxia; J18.9 Pneumonia, unspecified organism; N18.6 End stage renal disease; J44.0 Chronic obstructive pulmonary disease with (acute) lower respiratory infection; E78.5 Hyperlipidemia, unspecified; Z20.822 Contact with and (suspected) exposure to COVID-19; E11.22 Type 2 diabetes mellitus with diabetic chronic kidney disease; F17.210 Nicotine dependence, cigarettes, uncomplicated; F20.9 Schizophrenia, unspecified; E11.40 Type 2 diabetes mellitus with diabetic neuropathy, unspecified; Z96.651 Presence of right artificial knee joint; Z99.2 Dependence on renal dialysis; Z98.890 Other specified postprocedural states; Z86.16 Personal history of COVID-19; Z91.15 Patient's noncompliance with renal dialysis; Z99.81 Dependence on supplemental oxygen; Z88.1 Allergy status to other antibiotic agents; Z83.3 Family history of diabetes mellitus; Z80.9 Family history of malignant neoplasm, unspecified; Z79.4 Long term (current) use of insulin
CPT/HCPCS: 36415; 36600; 71045; 80048; 80053; 80074; 80202; 82550; 82553; 82803; 82962; 83605; 83880; 84484; 85025; 87040; 90935; 90937; 93005; 94640; 94660; 94664; 94760; 99285; J2185; J2930; J3370; J7070; U0002

== ENCOUNTER 2021-04-30 11:13 | Inpatient (IN) | payer MEDICARE ==
[~2021-04-30] VITALS: Ht 175.3 cm; Wt 99.8 kg
[~2021-04-30 11:13] MED LIST changes: +NORVASC5 MG PO
[2021-04-30 12:34] LABS: HEMOGLOBIN 10.7 gm/dl (14.0-17.5); RED BLOOD COUNT 3.91 M/UL (4.20-5.50); WHITE BLOOD COUNT 10.6 K/UL (4.5-11.0)
[2021-04-30] MEDS ORDERED: LACTULOSE10 GM/15 M PO (16:11)
[2021-04-30] MEDS ORDERED: CIPROFLOXACIN500 M1 PO (16:13)
[2021-04-30] MEDS ORDERED: IPRAT-ALBUT 0.5-3 ML INH (16:14)
[2021-04-30] MEDS ORDERED: LASIX80 MG PO (16:14)
[2021-05-01 06:56] LABS: HEMOGLOBIN 10.2 gm/dl (14.0-17.5); RED BLOOD COUNT 3.78 M/UL (4.20-5.50)
[2021-05-01 06:59] LABS: WHITE BLOOD COUNT 6.2 K/UL (4.5-11.0)
[2021-05-02 05:10] LABS: RED BLOOD COUNT 3.65 M/UL (4.20-5.50); WHITE BLOOD COUNT 6.9 K/UL (4.5-11.0)
--- NOTE | 2021-05-02 16:30 | NUR ---
MRI HERE TO GET PT ,PT REFUSES
--- NOTE | 2021-05-02 23:52 | NUR ---
PT REFUSING FOR ME TO DO HIS BID DRESSING CHANGES ON HIS FEET. EXPLAINED TO PT IMPORTANCE OF HAVING DRESSINGS CHANGED.
[2021-05-03 03:54] LABS: HEMOGLOBIN 9.9 gm/dl (14.0-17.5); RED BLOOD COUNT 3.75 M/UL (4.20-5.50); WHITE BLOOD COUNT 7.6 K/UL (4.5-11.0)
[2021-05-04 05:12] LABS: HEMOGLOBIN 9.9 gm/dl (14.0-17.5); RED BLOOD COUNT 3.62 M/UL (4.20-5.50); WHITE BLOOD COUNT 7.1 K/UL (4.5-11.0)
[2021-05-05] MEDS ORDERED: AUGMENTIN 500-1 EACH PO (14:28)
--- NOTE | 2021-05-05 15:47 | NUR ---
patient refuses dressing change. says his will do it.
--- NOTE | 2021-05-06 11:15 | NUR ---
SPOKE WITH CYNDI LUCAS ABOUT PATIENT LEAVING BEFORE HH SET UP. SHE SAID SHE WAS IN CONVERSTAION WITH AND IN PROCESS OF SETTING UP HH WITH [facility].
== END 2021-05-06 10:30 | disposition home or self-care (01) | DRG 622 ==
LOC: ER1 11:13 → CDU 14:52 → MED SURG 4 15:44
PROVIDERS: Family Medicine; Physician Assistant; Physician Assistant Medical; ADMIT Internal Medicine
PROC: 5A1D70Z Performance of Urinary Filtration, Intermittent, Less than 6 Hours Per Day (ICD-10-PCS; 2021-04-30)
PROC: 0JBR0ZZ Excision of Left Foot Subcutaneous Tissue and Fascia, Open Approach (ICD-10-PCS; principal; 2021-05-01)
PROC: 0JBQ0ZZ Excision of Right Foot Subcutaneous Tissue and Fascia, Open Approach (ICD-10-PCS; 2021-05-01)
DX: E11.621 Type 2 diabetes mellitus with foot ulcer (principal); I50.33 Acute on chronic diastolic (congestive) heart failure; I13.2 Hypertensive heart and chronic kidney disease with heart failure and with stage 5 chronic kidney disease, or end stage renal disease; J96.11 Chronic respiratory failure with hypoxia; L97.429 Non-pressure chronic ulcer of left heel and midfoot with unspecified severity; L97.419 Non-pressure chronic ulcer of right heel and midfoot with unspecified severity; M86.672 Other chronic osteomyelitis, left ankle and foot; E66.2 Morbid (severe) obesity with alveolar hypoventilation; L03.116 Cellulitis of left lower limb; L03.115 Cellulitis of right lower limb; E87.1 Hypo-osmolality and hyponatremia; E87.6 Hypokalemia; N18.6 End stage renal disease; E11.51 Type 2 diabetes mellitus with diabetic peripheral angiopathy without gangrene; E11.628 Type 2 diabetes mellitus with other skin complications; Z20.822 Contact with and (suspected) exposure to COVID-19; I87.2 Venous insufficiency (chronic) (peripheral); E11.40 Type 2 diabetes mellitus with diabetic neuropathy, unspecified; J43.9 Emphysema, unspecified; Z96.651 Presence of right artificial knee joint; F20.9 Schizophrenia, unspecified; L08.89 Other specified local infections of the skin and subcutaneous tissue; F17.210 Nicotine dependence, cigarettes, uncomplicated; E11.22 Type 2 diabetes mellitus with diabetic chronic kidney disease; Z91.15 Patient's noncompliance with renal dialysis; Z88.1 Allergy status to other antibiotic agents; Z80.0 Family history of malignant neoplasm of digestive organs; Z83.3 Family history of diabetes mellitus; Z99.2 Dependence on renal dialysis
CPT/HCPCS: 36415; 36600; 71045; 73630; 80048; 80053; 80202; 81001; 82550; 82553; 82803; 82962; 83735; 83874; 83880; 84100; 84484; 85025; 85027; 86140; 87070; 87077; 87186; 87205; 90935; 90937; 90947; 93925; 94660; 94760; 99285; J2185; J2543; J3370; J7070; U0002

== ENCOUNTER 2021-07-10 14:33 | Observation (INO) | payer MEDICARE ==
[~2021-07-10 14:33] MED LIST changes: +AUGMENTIN 500-1 EACH PO; +CIPROFLOXACIN500 M1 PO; +IPRAT-ALBUT 0.5-3 ML INH; +LACTULOSE10 GM/15 M PO; +LASIX80 MG PO
[2021-07-10 15:50] LABS: HEMOGLOBIN 11.4 gm/dl (14.0-17.5); RED BLOOD COUNT 4.02 M/UL (4.20-5.50); WHITE BLOOD COUNT 12.7 K/UL (4.5-11.0)
[2021-07-11 03:50] LABS: HEMOGLOBIN 11.7 gm/dl (14.0-17.5); RED BLOOD COUNT 4.12 M/UL (4.20-5.50); WHITE BLOOD COUNT 11.6 K/UL (4.5-11.0)
[2021-07-12 08:15] LABS: HBSAG SCREEN Negative (Negative); HEP A AB, IGM Negative (Negative); HEP B CORE AB, IGM Negative (Negative); HEP C VIRUS AB 0.1 (0.0-0.9)
== END 2021-07-11 12:00 | disposition left against medical advice (07) ==
LOC: ER1 14:33 → CDU 17:10
PROVIDERS: Internal Medicine Nephrology; Physician Assistant Medical; Student in an Organized Health Care Education/Training Program; ADMIT Internal Medicine
DX: E87.70 Fluid overload, unspecified (principal); I13.2 Hypertensive heart and chronic kidney disease with heart failure and with stage 5 chronic kidney disease, or end stage renal disease; E11.22 Type 2 diabetes mellitus with diabetic chronic kidney disease; N18.6 End stage renal disease; I50.33 Acute on chronic diastolic (congestive) heart failure; J44.9 Chronic obstructive pulmonary disease, unspecified; J96.21 Acute and chronic respiratory failure with hypoxia; E11.21 Type 2 diabetes mellitus with diabetic nephropathy; E11.621 Type 2 diabetes mellitus with foot ulcer; L97.529 Non-pressure chronic ulcer of other part of left foot with unspecified severity; L97.519 Non-pressure chronic ulcer of other part of right foot with unspecified severity; F17.210 Nicotine dependence, cigarettes, uncomplicated; R91.8 Other nonspecific abnormal finding of lung field; E11.51 Type 2 diabetes mellitus with diabetic peripheral angiopathy without gangrene; F60.1 Schizoid personality disorder; E11.69 Type 2 diabetes mellitus with other specified complication; M86.8X9 Other osteomyelitis, unspecified sites; Z20.822 Contact with and (suspected) exposure to COVID-19; Z99.2 Dependence on renal dialysis; Z91.15 Patient's noncompliance with renal dialysis; Z91.14 Patient's other noncompliance with medication regimen; Z99.81 Dependence on supplemental oxygen; Z88.1 Allergy status to other antibiotic agents; Z98.890 Other specified postprocedural states
CPT/HCPCS: 71045; 80048; 80053; 80074; 82550; 82553; 82962; 83735; 83880; 84484; 85025; 85027; 90935; 93005; 94760; 99285; G0257; G0378; U0002

== ENCOUNTER 2021-08-05 12:24 | Inpatient (IN) | payer MEDICARE ==
[~2021-08-05] VITALS: Ht 170.2 cm; Wt 104.3 kg
[2021-08-05 12:46] LABS: HEMOGLOBIN 10.9 gm/dl (14.0-17.5); RED BLOOD COUNT 3.76 M/UL (4.20-5.50); WHITE BLOOD COUNT 21.8 K/UL (4.5-11.0)
[2021-08-06 02:10] LABS: HEMOGLOBIN 10.5 gm/dl (14.0-17.5); RED BLOOD COUNT 3.66 M/UL (4.20-5.50); WHITE BLOOD COUNT 21.2 K/UL (4.5-11.0)
[2021-08-07 03:27] LABS: HEMOGLOBIN 9.4 gm/dl (14.0-17.5); RED BLOOD COUNT 3.31 M/UL (4.20-5.50)
[2021-08-07 03:34] LABS: WHITE BLOOD COUNT 12.5 K/UL (4.5-11.0)
--- NOTE | 2021-08-07 09:28 | NUR ---
CALLED [facility] IN DIALYSIS TO CONFIRM PATIENT IS SCHEDULED FOR DIALYSIS TODAY.
--- NOTE | 2021-08-08 11:55 | NUR ---
CALL FROM DIALYSIS. PATIENT WILL BE RETURNING TO UNIT. 2100ML TAKEN OFF DURING DIALYSIS. TRANSPORT CALLED
[2021-08-08] MEDS ORDERED: AUGMENTIN 875-1 EACH PO (14:04)
[2021-08-08] MEDS ORDERED: ISOTON GEN100 MG/50 IV (14:04)
== END 2021-08-08 14:45 | disposition home health service (06) | DRG 871 ==
LOC: ER1 12:24 → CDU 14:25 → PROG CARE 14:25
PROVIDERS: Emergency Medicine; Internal Medicine Infectious Disease; Physician Assistant; ADMIT Internal Medicine
PROC: 5A09457 Assistance with Respiratory Ventilation, 24-96 Consecutive Hours, Continuous Positive Airway Pressure (ICD-10-PCS; principal; 2021-08-05)
PROC: 5A1D70Z Performance of Urinary Filtration, Intermittent, Less than 6 Hours Per Day (ICD-10-PCS; 2021-08-05)
DX: A41.52 Sepsis due to Pseudomonas (principal); N18.6 End stage renal disease; J96.21 Acute and chronic respiratory failure with hypoxia; G93.41 Metabolic encephalopathy; Z20.822 Contact with and (suspected) exposure to COVID-19; I13.2 Hypertensive heart and chronic kidney disease with heart failure and with stage 5 chronic kidney disease, or end stage renal disease; I50.32 Chronic diastolic (congestive) heart failure; E87.1 Hypo-osmolality and hyponatremia; M86.672 Other chronic osteomyelitis, left ankle and foot; B96.5 Pseudomonas (aeruginosa) (mallei) (pseudomallei) as the cause of diseases classified elsewhere; E11.51 Type 2 diabetes mellitus with diabetic peripheral angiopathy without gangrene; Z96.651 Presence of right artificial knee joint; E11.621 Type 2 diabetes mellitus with foot ulcer; L97.529 Non-pressure chronic ulcer of other part of left foot with unspecified severity; L97.519 Non-pressure chronic ulcer of other part of right foot with unspecified severity; B96.1 Klebsiella pneumoniae [K. pneumoniae] as the cause of diseases classified elsewhere; F20.9 Schizophrenia, unspecified; E11.69 Type 2 diabetes mellitus with other specified complication; Z91.14 Patient's other noncompliance with medication regimen; Z99.2 Dependence on renal dialysis; Z87.891 Personal history of nicotine dependence; Z98.890 Other specified postprocedural states; Z88.8 Allergy status to other drugs, medicaments and biological substances; Z80.0 Family history of malignant neoplasm of digestive organs; Z83.3 Family history of diabetes mellitus; Z86.16 Personal history of COVID-19; Z79.899 Other long term (current) drug therapy
CPT/HCPCS: 36415; 36600; 51702; 70450; 71045; 73620; 80048; 80053; 80202; 81001; 82550; 82553; 82803; 82962; 83605; 83690; 83735; 83874; 83880; 84100; 84439; 84443; 84484; 85025; 85610; 85730; 87040; 87086; 90935; 90937; 93005; 94640; 94660; 94664; 94760; 99285; J2185; J2250; J2930; J3370; J7030; J7070; U0002

== ENCOUNTER 2021-08-22 19:25 | Inpatient (IN) | payer MEDICARE ==
[~2021-08-22] VITALS: Ht 175.3 cm; Wt 99.3 kg
[~2021-08-22 19:25] MED LIST changes: +ISOTON GEN100 MG/50 IV
[2021-08-22 20:00] LABS: HEMOGLOBIN 9.7 gm/dl (14.0-17.5); RED BLOOD COUNT 3.33 M/UL (4.20-5.50); WHITE BLOOD COUNT 11.3 K/UL (4.5-11.0)
[2021-08-22] MEDS ORDERED: NITROGLYCERIN0.4 MG SL (23:42)
[2021-08-22] MEDS ORDERED: PROAIR HFA8.5 GM INH (23:42)
[2021-08-23] MEDS ORDERED: LASIX80 MG PO (23:43)
[2021-08-24 01:18] LABS: HEMOGLOBIN 8.8 gm/dl (14.0-17.5); RED BLOOD COUNT 3.03 M/UL (4.20-5.50)
[2021-08-24 01:25] LABS: WHITE BLOOD COUNT 7.4 K/UL (4.5-11.0)
[2021-08-24 09:13] LABS: HBSAG SCREEN Negative (Negative); HEP A AB, IGM Negative (Negative); HEP B CORE AB, IGM Negative (Negative); HEP C VIRUS AB <0.1 (0.0-0.9)
[2021-08-25 03:12] LABS: HEMOGLOBIN 9.6 gm/dl (14.0-17.5); WHITE BLOOD COUNT 7.7 K/UL (4.5-11.0)
[2021-08-25 03:14] LABS: RED BLOOD COUNT 3.34 M/UL (4.20-5.50)
--- NOTE | 2021-08-25 06:10 | NUR ---
PT REFUES FOR IV TO BE DISCONNECTED FROM IV PUMP. " PT STATED JUST LEAVE ME ALONE" EDUCATED PATIENT ON IMPORTANCE OF DISCONNECTED IV PER POLICY, BUT PATIENT REMAINED TO REFUSE.
--- NOTE | 2021-08-25 06:57 | NUR ---
0700- PT REFUSED DAILY WT.
[2021-08-26 03:29] LABS: HEMOGLOBIN 9.1 gm/dl (14.0-17.5); RED BLOOD COUNT 3.21 M/UL (4.20-5.50); WHITE BLOOD COUNT 7.5 K/UL (4.5-11.0)
--- NOTE | 2021-08-26 06:16 | NUR ---
PT REFUSES SOME OF MEDS, PT EDUCATED ON MEDICATIONS AND PT VERBALIZED UNDERSTANDING HOWEVER STILL REFUSED. PT ALSO REFUSES TO GET OUT OF CHAIR AND INTO BED AND ONLY WISHES TO STAY IN CHAIR. PT EDUCATED ON THE RISK OF SKIN BREAKDOWN AND PT VERBALIZED UNDERSTANDING. PT ENCOURAGED TO SHIFT WEIGHT IN CHAIR. PT REFUSED TO BE WEIGHED THIS AM.
[2021-08-27 03:03] LABS: HEMOGLOBIN 8.8 gm/dl (14.0-17.5); RED BLOOD COUNT 3.05 M/UL (4.20-5.50); WHITE BLOOD COUNT 8.2 K/UL (4.5-11.0)
--- NOTE | 2021-08-27 09:41 | NUR ---
DR. GONZALEZ CAME TO FLOOR AND SPOKE WITH PT RE: REQUESTING TO BE DISCHARGED. EXPLAINED IMPORTANE OF PT STAYING AND RECIEVING CARE NEEDED FOR FEET WITH VOICED UNDERSTANDING FROM PT BUT PT STATES HE IS LEAVING NO MATTER WHAT CAUSE HE HAS "HOME DUTIES TO TAKE CARE OF". EXPLAINED IF PT LEFT IT WOULD BE AGAINST MEDICAL ADVICE AND PT VOICED UNDERSTANDING AND CHOSE TO SIGN OUT AMA.
== END 2021-08-27 10:25 | disposition left against medical advice (07) | DRG 871 ==
LOC: ER1 19:25 → PROG CARE 21:45 → CDU 21:45 → PROG CARE 08-23 01:48
PROVIDERS: Family Medicine; Internal Medicine; Internal Medicine Nephrology; ADMIT Internal Medicine
PROC: 5A1D70Z Performance of Urinary Filtration, Intermittent, Less than 6 Hours Per Day (ICD-10-PCS; 2021-08-23)
PROC: B24BZZ4 Ultrasonography of Heart with Aorta, Transesophageal (ICD-10-PCS; principal; 2021-08-26)
PROC: 5A1D70Z Performance of Urinary Filtration, Intermittent, Less than 6 Hours Per Day (ICD-10-PCS; 2021-08-26)
DX: A41.9 Sepsis, unspecified organism (principal); L89.624 Pressure ulcer of left heel, stage 4; L89.614 Pressure ulcer of right heel, stage 4; J96.21 Acute and chronic respiratory failure with hypoxia; J96.22 Acute and chronic respiratory failure with hypercapnia; G93.41 Metabolic encephalopathy; N18.6 End stage renal disease; R53.2 Functional quadriplegia; E11.52 Type 2 diabetes mellitus with diabetic peripheral angiopathy with gangrene; E87.1 Hypo-osmolality and hyponatremia; M86.8X7 Other osteomyelitis, ankle and foot; Z16.24 Resistance to multiple antibiotics; E66.2 Morbid (severe) obesity with alveolar hypoventilation; L03.116 Cellulitis of left lower limb; L03.115 Cellulitis of right lower limb; I50.32 Chronic diastolic (congestive) heart failure; I13.2 Hypertensive heart and chronic kidney disease with heart failure and with stage 5 chronic kidney disease, or end stage renal disease; Z20.822 Contact with and (suspected) exposure to COVID-19; E11.69 Type 2 diabetes mellitus with other specified complication; Z96.651 Presence of right artificial knee joint; D63.1 Anemia in chronic kidney disease; E11.22 Type 2 diabetes mellitus with diabetic chronic kidney disease; F17.210 Nicotine dependence, cigarettes, uncomplicated; E11.621 Type 2 diabetes mellitus with foot ulcer; I08.1 Rheumatic disorders of both mitral and tricuspid valves; J44.9 Chronic obstructive pulmonary disease, unspecified; E11.40 Type 2 diabetes mellitus with diabetic neuropathy, unspecified; F20.9 Schizophrenia, unspecified; Z99.2 Dependence on renal dialysis; Z91.14 Patient's other noncompliance with medication regimen; Z89.421 Acquired absence of other right toe(s); Z68.32 Body mass index [BMI] 32.0-32.9, adult
CPT/HCPCS: ECHO; 36415; 36600; 71045; 73620; 73700; 80053; 80074; 80202; 82009; 82550; 82553; 82803; 82962; 82977; 83036; 83605; 83735; 83874; 83880; 84484; 85025; 85027; 85610; 85652; 86140; 87040; 90937; 93005; 93306; 94640; 94660; 94664; 94760; 96374; 96375; 99285; G0378; J1644; J1650; J1940; J2185; J2543; J3370; J7070; U0002

== ENCOUNTER 2021-09-18 14:32 | Inpatient (IN) | payer MEDICARE, MEDICAID ==
[~2021-09-18] VITALS: Ht 177.8 cm; Wt 92.1 kg
[~2021-09-18 14:32] MED LIST changes: +NITROGLYCERIN0.4 MG SL; +PROAIR HFA8.5 GM INH
[2021-09-18 15:10] LABS: RED BLOOD COUNT 3.43 M/UL (4.20-5.50)
[2021-09-18] MEDS ORDERED: PROVENTIL HFA6.7 GM INH ×2 (21:04→21:05)
[2021-09-18] MEDS ORDERED: AMMONIUM LACTA140 GM TP (21:05)
[2021-09-18] MEDS ORDERED: DAKIN'S473 ML MC (21:06)
[2021-09-18] MEDS ORDERED: HYDROCODON-ACE1 EAC6 PO (21:08)
[2021-09-19 08:36] LABS: RED BLOOD COUNT 3.16 M/UL (4.20-5.50); WHITE BLOOD COUNT 20.6 K/UL (4.5-11.0)
[2021-09-19 10:09] LABS: ACINETOBACTER BAUMANNII Not Detected (Negative); CANDIDA ALBICANS Not Detected (Negative); CANDIDA KRUSEI Not Detected (Negative); CANDIDA TROPICALIS Not Detected (Negative); ENTEROCOCCUS Not Detected (Negative); ESCHERICHIA COLI Not Detected (Negative); HAEMOPHILUS INFLUENZAE Not Detected (Negative); KLEBSIELLA OXYTOCA Not Detected (Negative); KLEBSIELLA PNEUMONIAE Not Detected (Negative); KPC-CARBAPENEM-RESISTANCE GENE Not Detected (Negative); PROTEUS Not Detected (Negative); SERRATIA MARCESANS Not Detected (Negative); STAPHYLOCOCCUS Not Detected (Negative); STAPHYLOCOCCUS AUREUS Not Detected (Negative); STREP AGALACTIAE (GROUP B) Not Detected (Negative); STREP PYOGENES (GROUP A) Not Detected (Negative); STREPTOCOCCUS Not Detected (Negative); mecA (METHICILLIN RESIST GENE Not Detected (Negative); vanA/B (VANCOMYCIN RESIST GENE Not Detected (Negative)
[2021-09-19 11:02] LABS: PSEUDOMONAS AERUGINOSA DETECTED (Negative)
[2021-09-20 05:27] LABS: RED BLOOD COUNT 3.13 M/UL (4.20-5.50); WHITE BLOOD COUNT 9.7 K/UL (4.5-11.0)
[2021-09-21 04:46] LABS: HEMOGLOBIN 9.1 gm/dl (14.0-17.5); RED BLOOD COUNT 3.17 M/UL (4.20-5.50); WHITE BLOOD COUNT 10.8 K/UL (4.5-11.0)
[2021-09-22 02:51] LABS: HEMOGLOBIN 9.4 gm/dl (14.0-17.5); RED BLOOD COUNT 3.31 M/UL (4.20-5.50); WHITE BLOOD COUNT 11.5 K/UL (4.5-11.0)
--- NOTE | 2021-09-23 00:19 | NUR ---
PATIENT REFUSED NIGHT TIME DOSE OF METOPROLOL. PATIENT WAS EDUCATED THAT HE NEEDED THE MEDICATION. PATIENT STILL REFUSED MEDICATION. PATIENT ALSO MADE A COMMENT ABOUT ONLY WANTING HEPARIN ONCE DAILY. PATIENT STATED THAT HE IS NOT GOING TO DO ANY PROCEDURE OR SURGERY UNTIL HE SEES HIS DOGS.
[2021-09-23 03:09] LABS: HEMOGLOBIN 9.8 gm/dl (14.0-17.5); RED BLOOD COUNT 3.47 M/UL (4.20-5.50); WHITE BLOOD COUNT 12.5 K/UL (4.5-11.0)
[2021-09-24 03:24] LABS: HEMOGLOBIN 10.2 gm/dl (14.0-17.5); RED BLOOD COUNT 3.58 M/UL (4.20-5.50); WHITE BLOOD COUNT 14.7 K/UL (4.5-11.0)
[2021-09-24 05:11] LABS: HBSAG SCREEN Negative (Negative); HEP A AB, IGM Negative (Negative); HEP B CORE AB, IGM Negative (Negative); HEP C VIRUS AB <0.1 (0.0-0.9)
[2021-09-24 21:14] LABS: HEMOGLOBIN 10.4 gm/dl (14.0-17.5); RED BLOOD COUNT 3.71 M/UL (4.20-5.50); WHITE BLOOD COUNT 17.4 K/UL (4.5-11.0)
[2021-09-25 03:23] LABS: RED BLOOD COUNT 3.45 M/UL (4.20-5.50); WHITE BLOOD COUNT 16.2 K/UL (4.5-11.0)
[2021-09-25] MEDS ORDERED: ATORVASTATIN CA20 MG PO (16:26)
[2021-09-25] MEDS ORDERED: ASPIRIN EC81 MG PO (16:26)
[2021-09-25] MEDS ORDERED: BRILINTA 90 MG90 MG PO (16:26)
[2021-09-25] MEDS ORDERED: AMIODARONE HCL200 MG PO (16:26)
[2021-09-25] MEDS ORDERED: LOPRESSOR 25 MG25 MG PO (16:26)
[2021-09-25] MEDS ORDERED: CLINDAMYCIN HC300 MG PO (16:33)
[2021-09-25] MEDS ORDERED: LEVOFLOXACIN500 MG PO (16:50)
== END 2021-09-25 16:54 | disposition home or self-care (01) | DRG 853 ==
LOC: ER1 14:32 → CCU 18:43 → CDU 18:43 → PROG CARE 18:43 → CCU 21:02 → PROG CARE 09-21 14:15
PROVIDERS: Internal Medicine; Internal Medicine Interventional Cardiology; Internal Medicine Nephrology; Student in an Organized Health Care Education/Training Program; ADMIT Internal Medicine
PROC: 5A09357 Assistance with Respiratory Ventilation, Less than 24 Consecutive Hours, Continuous Positive Airway Pressure (ICD-10-PCS; 2021-09-18)
PROC: 5A12012 Performance of Cardiac Output, Single, Manual (ICD-10-PCS; principal; 2021-09-19)
PROC: 5A1D70Z Performance of Urinary Filtration, Intermittent, Less than 6 Hours Per Day (ICD-10-PCS; 2021-09-21)
PROC: 027034Z Dilation of Coronary Artery, One Artery with Drug-eluting Intraluminal Device, Percutaneous Approach (ICD-10-PCS; 2021-09-24)
PROC: 4A023N7 Measurement of Cardiac Sampling and Pressure, Left Heart, Percutaneous Approach (ICD-10-PCS; 2021-09-24)
PROC: B2111ZZ Fluoroscopy of Multiple Coronary Arteries using Low Osmolar Contrast (ICD-10-PCS; 2021-09-24)
PROC: 5A1D70Z Performance of Urinary Filtration, Intermittent, Less than 6 Hours Per Day (ICD-10-PCS; 2021-09-24)
DX: A41.52 Sepsis due to Pseudomonas (principal); N18.6 End stage renal disease; R65.21 Severe sepsis with septic shock; Z20.822 Contact with and (suspected) exposure to COVID-19; N17.0 Acute kidney failure with tubular necrosis; I46.2 Cardiac arrest due to underlying cardiac condition; I47.2 Ventricular tachycardia; I13.2 Hypertensive heart and chronic kidney disease with heart failure and with stage 5 chronic kidney disease, or end stage renal disease; I50.32 Chronic diastolic (congestive) heart failure; M86.8X7 Other osteomyelitis, ankle and foot; E87.1 Hypo-osmolality and hyponatremia; L03.115 Cellulitis of right lower limb; E11.52 Type 2 diabetes mellitus with diabetic peripheral angiopathy with gangrene; F20.0 Paranoid schizophrenia; I49.9 Cardiac arrhythmia, unspecified; Z96.653 Presence of artificial knee joint, bilateral; E66.01 Morbid (severe) obesity due to excess calories; I25.10 Atherosclerotic heart disease of native coronary artery without angina pectoris; J43.9 Emphysema, unspecified; E78.5 Hyperlipidemia, unspecified; I89.0 Lymphedema, not elsewhere classified; E11.621 Type 2 diabetes mellitus with foot ulcer; E87.5 Hyperkalemia; L97.529 Non-pressure chronic ulcer of other part of left foot with unspecified severity; E11.69 Type 2 diabetes mellitus with other specified complication; E11.51 Type 2 diabetes mellitus with diabetic peripheral angiopathy without gangrene; F17.210 Nicotine dependence, cigarettes, uncomplicated; E11.22 Type 2 diabetes mellitus with diabetic chronic kidney disease; Z79.4 Long term (current) use of insulin; Z91.14 Patient's other noncompliance with medication regimen; Z99.2 Dependence on renal dialysis; Z88.1 Allergy status to other antibiotic agents; Z80.9 Family history of malignant neoplasm, unspecified; Z83.3 Family history of diabetes mellitus; Z82.49 Family history of ischemic heart disease and other diseases of the circulatory system; Z79.01 Long term (current) use of anticoagulants; Z79.82 Long term (current) use of aspirin; Z68.33 Body mass index [BMI] 33.0-33.9, adult
CPT/HCPCS: 36415; 36600; 71045; 73620; 73700; 80048; 80053; 80074; 80202; 81001; 82550; 82553; 82803; 82962; 83605; 83735; 83874; 83880; 84100; 84484; 85025; 85027; 85347; 85652; 86140; 87040; 87077; 87086; 87150; 87186; 90935; 90937; 93005; 93571; 93925; 94640; 94660; 94760; 96374; 97161; 99152; 99153; 99285; C1769; C1874; C1887; C1894; C9600; J0153; J0282; J1644; J2185; J2250; J3010; J3246; J3370; J7040; J7050; Q9965; Q9967; U0002

== ENCOUNTER 2021-09-27 20:08 | Inpatient (IN) | payer MEDICARE, OTHER ==
[~2021-09-27] VITALS: Ht 175.3 cm; Wt 99.8 kg
[~2021-09-27 20:08] MED LIST changes: +AMIODARONE HCL200 MG PO; +AMMONIUM LACTA140 GM TP; +BRILINTA 90 MG90 MG PO; +CLINDAMYCIN HC300 MG PO; +DAKIN'S473 ML MC; +HYDROCODON-ACE1 EAC6 PO; +PROVENTIL HFA6.7 GM INH
[2021-09-27 21:28] LABS: RED BLOOD COUNT 3.48 M/UL (4.20-5.50); WHITE BLOOD COUNT 14.1 K/UL (4.5-11.0)
[2021-09-28] MEDS ORDERED: IPRAT-ALBUT 0.5-3 ML INH (09:35)
[2021-09-28] MEDS ORDERED: CLINDAMYCIN HC300 MG PO (09:36)
[2021-09-28] MEDS ORDERED: BRILINTA90 MG PO (09:36)
[2021-09-28] MEDS ORDERED: ATORVASTATIN CA40 MG PO (09:40)
[2021-09-28] MEDS ORDERED: PACERONE200 MG PO (09:40)
--- NOTE | 2021-09-28 14:28 | NUR ---
PATIENT LEFT FLOOR FOR DIALYSIS TREATMENT PER PCU STAFF. [facility] N[facility] TODAY, WILL CALL WHEN HE IS FINISHED.
--- NOTE | 2021-09-28 18:22 | NUR ---
PATIENT RETURNS TO FLOOR FROM DIALYSIS. 3000ML REMOVED. TRANSPORTED PER PCU STAFF. PATIENT TOLERATED WELL
[2021-09-29 03:46] LABS: HEMOGLOBIN 9.7 gm/dl (14.0-17.5); RED BLOOD COUNT 3.35 M/UL (4.20-5.50); WHITE BLOOD COUNT 12.9 K/UL (4.5-11.0)
--- NOTE | 2021-09-29 16:21 | NUR ---
PATIENT LEAVES FLOOR IN HIS WHEELCHAIR WITH HIS . EDUCATE PATIENT ON THE RISKS OF LEAVING THE FLOOR UNMONITORED, HE VERBALIZED UNDERSTANDING
[2021-09-30 04:10] LABS: HEMOGLOBIN 9.3 gm/dl (14.0-17.5); RED BLOOD COUNT 3.24 M/UL (4.20-5.50); WHITE BLOOD COUNT 11.4 K/UL (4.5-11.0)
--- NOTE | 2021-09-30 15:28 | NUR ---
SPOKE TO PT ABOUT DIALYSIS TODAY, HE STATED HE WASN'T DOING IT UNTIL THIS EVENING THAT HE "NEEDED A BREAK", ALSO SPOKE TO [facility]--DIALYSIS NURSE, AND SHE STATED THAT THIS WAS A "NO" AND SHE WOULD LET DR RUBIO KNOW.
--- NOTE | 2021-09-30 16:30 | NUR ---
PT ARRIVED TO UNIT IN HIS PERSONAL WHEELCHAIR, HE REFUSED AN ASSESSMENT STATED HIS DOES HIS WOUND CARE AND THAT SHE LOOKS AT HIS BOTTOM.
[2021-10-01 07:19] LABS: HEMOGLOBIN 9.3 gm/dl (14.0-17.5); RED BLOOD COUNT 3.4 M/UL (4.20-5.50)
[2021-10-01 07:20] LABS: WHITE BLOOD COUNT 15.5 K/UL (4.5-11.0)
[2021-10-01] MEDS ORDERED: LEVOFLOXACIN500 MG PO (09:44)
[2021-10-01] MEDS ORDERED: CLINDAMYCIN HC300 MG PO (09:44)
== END 2021-10-01 18:00 | disposition home health service (06) | DRG 193 ==
LOC: ER1 20:08 → MED SURG 4 09-28 08:25 → CDU 09-28 08:25 → PROG CARE 09-28 08:25 → MED SURG 4 09-30 17:01
PROVIDERS: Family Medicine; ADMIT Internal Medicine
PROC: 5A1D70Z Performance of Urinary Filtration, Intermittent, Less than 6 Hours Per Day (ICD-10-PCS; principal; 2021-09-30)
DX: J18.9 Pneumonia, unspecified organism (principal); N18.6 End stage renal disease; J96.21 Acute and chronic respiratory failure with hypoxia; G93.41 Metabolic encephalopathy; I50.33 Acute on chronic diastolic (congestive) heart failure; J44.0 Chronic obstructive pulmonary disease with (acute) lower respiratory infection; I13.2 Hypertensive heart and chronic kidney disease with heart failure and with stage 5 chronic kidney disease, or end stage renal disease; I50.32 Chronic diastolic (congestive) heart failure; E87.1 Hypo-osmolality and hyponatremia; R18.8 Other ascites; E11.621 Type 2 diabetes mellitus with foot ulcer; I08.1 Rheumatic disorders of both mitral and tricuspid valves; Z99.2 Dependence on renal dialysis; E11.51 Type 2 diabetes mellitus with diabetic peripheral angiopathy without gangrene; F20.9 Schizophrenia, unspecified; Z96.651 Presence of right artificial knee joint; I25.10 Atherosclerotic heart disease of native coronary artery without angina pectoris; Z20.822 Contact with and (suspected) exposure to COVID-19; F17.210 Nicotine dependence, cigarettes, uncomplicated; E87.5 Hyperkalemia; E87.70 Fluid overload, unspecified; D63.1 Anemia in chronic kidney disease; Z79.82 Long term (current) use of aspirin; Z88.1 Allergy status to other antibiotic agents; Z95.1 Presence of aortocoronary bypass graft; Z91.14 Patient's other noncompliance with medication regimen; Z79.899 Other long term (current) drug therapy
CPT/HCPCS: 36415; 70450; 71045; 71250; 80053; 80202; 82550; 82553; 82962; 83605; 83735; 83874; 84100; 84484; 85025; 86140; 87040; 90937; 93005; 94640; 94664; 94760; 99285; J1644; J2185; J2930; J3370; J7050; J7070; U0002

== ENCOUNTER 2021-10-08 08:16 | Inpatient (IN) | payer MEDICARE, MEDICAID ==
[~2021-10-08] VITALS: Ht 175.3 cm; Wt 110.0 kg
[~2021-10-08 08:16] MED LIST changes: +ATORVASTATIN CA40 MG PO; +BRILINTA90 MG PO; +PACERONE200 MG PO
[2021-10-08 10:06] LABS: RED BLOOD COUNT 2.96 M/UL (4.20-5.50); WHITE BLOOD COUNT 11.3 K/UL (4.5-11.0)
[2021-10-08 10:33] LABS: BUN/CREATININE RATIO 6 (0-10)
[2021-10-08] MEDS ORDERED: CLINDAMYCIN HC300 MG PO (15:15)
[2021-10-09 11:08] LABS: HEMOGLOBIN 9.1 gm/dl (14.0-17.5); WHITE BLOOD COUNT 9.6 K/UL (4.5-11.0)
[2021-10-09 11:19] LABS: RED BLOOD COUNT 3.26 M/UL (4.20-5.50)
--- NOTE | 2021-10-10 00:15 | NUR ---
PATIENT HAS ORDERS FOR DRESSING CHANGE TO GAB LOWER EXTREMETIES PER DR. VELOZ. ATTEMPTED AT THIS TIME TO DO DRESSING CHANGES AND PATIENT REFUSES. OFFERED TO COME IN BEFORE SHIFT CHANGE IN AM AND DO IT AND PATIENT DECLINES AT THIS TIME. PATIENT STATES HE WANTS TO WAIT UNTIL THE NEXT SHIFT.
[2021-10-10 02:55] LABS: HEMOGLOBIN 8.5 gm/dl (14.0-17.5); RED BLOOD COUNT 3.02 M/UL (4.20-5.50); WHITE BLOOD COUNT 9.4 K/UL (4.5-11.0)
[2021-10-10] MEDS ORDERED: SANTYL OINT 3030 GM TOP (12:36)
[2021-10-10] MEDS ORDERED: CLINDAMYCIN HC300 MG PO (12:36)
[2021-10-10] MEDS ORDERED: HUMALOG 10100 UNITS/ SC (12:36)
[2021-10-10] MEDS ORDERED: NICOTINE PATCH1 EAC2 TD (12:36)
[2021-10-10] MEDS ORDERED: PROTONIX 40 MG40 M1 PO (12:36)
== END 2021-10-10 15:29 | disposition home or self-care (01) | DRG 637 ==
LOC: ER1 08:16 → PROG CARE 15:11 → CDU 15:11 → PROG CARE 20:45
PROVIDERS: Emergency Medicine; ADMIT Internal Medicine
PROC: 5A1D70Z Performance of Urinary Filtration, Intermittent, Less than 6 Hours Per Day (ICD-10-PCS; principal; 2021-10-09)
DX: E11.621 Type 2 diabetes mellitus with foot ulcer (principal); U07.1 COVID-19; M86.8X7 Other osteomyelitis, ankle and foot; J96.11 Chronic respiratory failure with hypoxia; Z20.822 Contact with and (suspected) exposure to COVID-19; I12.0 Hypertensive chronic kidney disease with stage 5 chronic kidney disease or end stage renal disease; J90 Pleural effusion, not elsewhere classified; E87.1 Hypo-osmolality and hyponatremia; F20.0 Paranoid schizophrenia; I25.10 Atherosclerotic heart disease of native coronary artery without angina pectoris; E11.51 Type 2 diabetes mellitus with diabetic peripheral angiopathy without gangrene; I73.9 Peripheral vascular disease, unspecified; R21 Rash and other nonspecific skin eruption; L97.519 Non-pressure chronic ulcer of other part of right foot with unspecified severity; L97.529 Non-pressure chronic ulcer of other part of left foot with unspecified severity; J44.9 Chronic obstructive pulmonary disease, unspecified; N18.6 End stage renal disease; F17.210 Nicotine dependence, cigarettes, uncomplicated; Z96.651 Presence of right artificial knee joint; E66.9 Obesity, unspecified; L89.312 Pressure ulcer of right buttock, stage 2; D63.1 Anemia in chronic kidney disease; I87.2 Venous insufficiency (chronic) (peripheral); Z98.890 Other specified postprocedural states; Z89.611 Acquired absence of right leg above knee; Z79.899 Other long term (current) drug therapy; Z79.82 Long term (current) use of aspirin; Z95.828 Presence of other vascular implants and grafts; Z88.1 Allergy status to other antibiotic agents; Z91.14 Patient's other noncompliance with medication regimen; Z95.5 Presence of coronary angioplasty implant and graft; Z99.2 Dependence on renal dialysis; Z99.3 Dependence on wheelchair; Z68.35 Body mass index [BMI] 35.0-35.9, adult
CPT/HCPCS: 36415; 36600; 71045; 73620; 80053; 80202; 82550; 82553; 82803; 82962; 83036; 83605; 83735; 83874; 84484; 85025; 85652; 86140; 87040; 90935; 93005; 94664; 94760; 96374; 99285; A6212; J1100; J2185; J3370; J7070; Q9967; U0002

== ENCOUNTER 2021-12-10 08:17 | Inpatient (IN) | payer MEDICARE ==
[~2021-12-10] VITALS: Ht 175.3 cm; Wt 99.3 kg
[~2021-12-10 08:17] MED LIST changes: +AUGMENTIN 500-500 MG PO; +METOPROLOL TART25 MG PO; +PERCOCET 10-321 EACH PO; +SANTYL OINT 3030 GM TOP
[2021-12-10 10:23] LABS: HEMOGLOBIN 7.7 gm/dl (14.0-17.5); RED BLOOD COUNT 2.69 M/UL (4.20-5.50); WHITE BLOOD COUNT 14.7 K/UL (4.5-11.0)
[2021-12-10] MEDS ORDERED: VITAMIN C500 M4 PO (15:45)
[2021-12-10] MEDS ORDERED: CLINDAMYCIN HC300 MG PO (15:45)
[2021-12-11 08:14] LABS: HEMOGLOBIN 7.4 gm/dl (14.0-17.5); RED BLOOD COUNT 2.67 M/UL (4.20-5.50); WHITE BLOOD COUNT 12.1 K/UL (4.5-11.0)
[2021-12-12 08:14] LABS: HBSAG SCREEN Negative (Negative); HEP A AB, IGM Negative (Negative); HEP B CORE AB, IGM Negative (Negative); HEP C VIRUS AB 0.1 (0.0-0.9)
[2021-12-13 07:56] LABS: HEMOGLOBIN 7.3 gm/dl (14.0-17.5); RED BLOOD COUNT 2.66 M/UL (4.20-5.50); WHITE BLOOD COUNT 11.2 K/UL (4.5-11.0)
[2021-12-13] MEDS ORDERED: ROXICODONE TAB 55 MG PO (15:25)
--- NOTE | 2021-12-16 20:41 | NUR ---
PT VERY NONCOMPLIANT WITH CARE. PT REFUSING TO ALLOW ME TO FULLY ASSESS HIS LEGS AND RIGHT HIP/BUTTOCK AREA. AT APPROX. 2040 PT RUNG OUT AND MADE ME UNHOOK HIS 2100 [address] DOSE FROM HIS IV. PT STATING THAT HE IS REFUSING TO COMPLETE IT AT THIS TIME.
[2021-12-17 06:52] LABS: HEMOGLOBIN 7.3 gm/dl (14.0-17.5); RED BLOOD COUNT 2.64 M/UL (4.20-5.50); WHITE BLOOD COUNT 11.4 K/UL (4.5-11.0)
--- NOTE | 2021-12-17 10:17 | NUR ---
PT OFF UNIT TO DIALYSIS/
[2021-12-19 03:59] LABS: RED BLOOD COUNT 2.45 M/UL (4.20-5.50); WHITE BLOOD COUNT 11.4 K/UL (4.5-11.0)
[2021-12-19 04:04] LABS: HEMOGLOBIN 6.7 gm/dl (14.0-17.5)
--- NOTE | 2021-12-19 09:40 | NUR ---
[facility]SPOR[facility] TO GET HIM. HE REFUSED AND SAID TO CALL HIS DR HE WAS GOING HOME NO MATTER WHAT. I TRIED TO EDUCATE HIM THAT HIS HEMOGLOBIN WAS LOW AND NEEDED TO BE TREATED AND THAT HIS FOOT WAS NEEDING URGENT CARE. CHAITANYA SAID STOP TRYING TO SCARE ME , I AM NOT AFRAID . JOSE BEEN HERE TOO MANY DAYS NOW GO TELL MY DOCTOR IM LEAVING . DR RODRÍGUEZ CALLED , PT WILL HAVE TO LEAVE AGAINST AMA. CONSULT FOR SURGERY TO BE CANCELLED.
--- NOTE | 2021-12-19 09:54 | NUR ---
PT CALLED ME TO HIS ROOM AND SAID HE HAS CHANGED HIS MIND HE WILL STAY .
--- NOTE | 2021-12-19 12:25 | NUR ---
CONSENT FOR BLOOD TRANSFUSION
--- NOTE | 2021-12-19 23:30 | NUR ---
EDUCATED PT THAT HE WAS GOING TO BE NPO AT 0000 FOR HIS SURGERY IN THE AM. HOWEVER, PT REFUSED. PT STATED "NO YOU TELL WHOEVER IT IS THAT I'M NOT HAVING SURGERY TOMORROW. I WILL HAVE SURGERY NEXT WEEK. TOMORROW I AM GOING TO REST."
[2021-12-20 03:18] LABS: HEMOGLOBIN 7.8 gm/dl (14.0-17.5); WHITE BLOOD COUNT 13.2 K/UL (4.5-11.0)
[2021-12-20 03:23] LABS: RED BLOOD COUNT 2.7 M/UL (4.20-5.50)
[2021-12-21 09:02] LABS: HEMOGLOBIN 7.9 gm/dl (14.0-17.5); RED BLOOD COUNT 2.79 M/UL (4.20-5.50)
[2021-12-21 09:08] LABS: WHITE BLOOD COUNT 9.3 K/UL (4.5-11.0)
[2021-12-22 05:23] LABS: HEMOGLOBIN 7.5 gm/dl (14.0-17.5); RED BLOOD COUNT 2.63 M/UL (4.20-5.50); WHITE BLOOD COUNT 9.9 K/UL (4.5-11.0)
[2021-12-23 03:46] LABS: HEMOGLOBIN 7.4 gm/dl (14.0-17.5); RED BLOOD COUNT 2.55 M/UL (4.20-5.50); WHITE BLOOD COUNT 11.6 K/UL (4.5-11.0)
[2021-12-24 04:22] LABS: RED BLOOD COUNT 2.44 M/UL (4.20-5.50)
--- NOTE | 2021-12-24 05:36 | NUR ---
PT WAS INFORMED AT 10 PM ON 12/23/[address] VELOZ HAD PLACED ORDERS FOR A RIGHT ABOVE THE KNEE AMPUTATION AFTER ASSESSING THE PT PRIOR IN THE DAY. PT EDUCATED THAT HE WAS TO BE NPO AFTER MIDNIGHT AND WOULD REQUIRE A SURGERY BATH BEFORE MORNING. PT WAS AGREEABLE TO THE CONDITIONS. AT 0220 PT INFORMED HE HAD EATEN "THREE [employer]A CAKES" JUST BEFORE I ENTERED HIS ROOM BECAUSE HE HAD FORGOTTEN ABOUT THE IMPENDING PROCEDURE. UPON EDUCATION THE PT ABOUT THE IMPORTANCE OF STAYING NOTHING BY MOUTH THE REST OF THE NIGHT, AND I REENTERED THE ROOM FROM RETREVING PAIN MEDICATION, PT STATED HE HAD ALSO EATEN "TWO PIECES OF PIZZA". I WAS UNAWARE THE PT EVEN HAD CAKES OR PIZZA IN HIS ROOM. NO EVIDENCE WAS FOUND OF EITHER SNACK. PT AGREED TO STAY NPO THE REST OF THE NIGHT. AT 0500, VU RODRIGUEZ, AND I APPROCHED THE PT ABOUT A SURGERY BATH. PT REFUSED. PT STATED HE WOULD PREFER TO HAVE HIS SURGERY ON THURSDAY BECAUSE THURSDAY JUST "SOUNDED BETTER" TO HIM.
[2021-12-25 08:14] LABS: RED BLOOD COUNT 2.84 M/UL (4.20-5.50)
--- NOTE | 2021-12-25 15:23 | NUR ---
PT HAS SWELLING AROUND HIS EYE LIDS, PT REFUSES TO GO CT. DOCTOR AWARE
--- NOTE | 2021-12-25 15:24 | NUR ---
PT REFUSED DIAYLSIS. DOCTOR AWARE. STATES "HE IS JUST NOT GOING TODAY"
[2021-12-26 03:30] LABS: HEMOGLOBIN 7.8 gm/dl (14.0-17.5); RED BLOOD COUNT 2.71 M/UL (4.20-5.50); WHITE BLOOD COUNT 9.3 K/UL (4.5-11.0)
[2021-12-26 03:55] LABS: BUN/CREATININE RATIO 9 (0-10)
[2021-12-29 13:07] LABS: HEMOGLOBIN 7.5 gm/dl (14.0-17.5); RED BLOOD COUNT 2.64 M/UL (4.20-5.50); WHITE BLOOD COUNT 9.2 K/UL (4.5-11.0)
[2021-12-30 03:38] LABS: HEMOGLOBIN 7.3 gm/dl (14.0-17.5); RED BLOOD COUNT 2.56 M/UL (4.20-5.50); WHITE BLOOD COUNT 8.6 K/UL (4.5-11.0)
[2022-01-03] MEDS ORDERED: ELIQUIS2.5 MG PO (13:37)
[2022-02-11] MEDS ORDERED: HYDROCODON-ACE1 EAC6 PO (10:53)
[2022-02-11] MEDS ORDERED: PROVENTIL HFA6.7 GM INH (10:57)
[2022-02-14] MEDS ORDERED: ASPIRIN EC81 MG PO (17:57)
[2022-02-14] MEDS ORDERED: NICOTINE PATCH1 EAC2 TOP (17:57)
[2022-02-14] MEDS ORDERED: ATORVASTATIN CA20 MG PO (17:57)
[2022-02-14] MEDS ORDERED: PROTONIX 40 MG40 M1 PO (17:57)
[2022-02-14] MEDS ORDERED: AMIODARONE HCL200 MG PO (17:57)
== END 2021-12-30 14:14 | disposition home or self-care (01) | DRG 239 ==
LOC: ER1 08:17 → CDU 11:53 → MED SURG 4 11:53
PROVIDERS: Internal Medicine; Internal Medicine Nephrology; Physician Assistant; Physician Assistant Medical; ADMIT Internal Medicine Infectious Disease
PROC: 5A1D70Z Performance of Urinary Filtration, Intermittent, Less than 6 Hours Per Day (ICD-10-PCS; principal; 2021-12-10)
PROC: 5A1D70Z Performance of Urinary Filtration, Intermittent, Less than 6 Hours Per Day (ICD-10-PCS; 2021-12-17)
PROC: 30233N1 Transfusion of Nonautologous Red Blood Cells into Peripheral Vein, Percutaneous Approach (ICD-10-PCS; 2021-12-19)
PROC: 0Y6C0Z1 Detachment at Right Upper Leg, High, Open Approach (ICD-10-PCS; 2021-12-24)
PROC: 5A1D70Z Performance of Urinary Filtration, Intermittent, Less than 6 Hours Per Day (ICD-10-PCS; 2021-12-28)
DX: E11.52 Type 2 diabetes mellitus with diabetic peripheral angiopathy with gangrene (principal); N18.6 End stage renal disease; G92.9 Unspecified toxic encephalopathy; I13.2 Hypertensive heart and chronic kidney disease with heart failure and with stage 5 chronic kidney disease, or end stage renal disease; Z20.822 Contact with and (suspected) exposure to COVID-19; J96.11 Chronic respiratory failure with hypoxia; I50.32 Chronic diastolic (congestive) heart failure; E87.2 Acidosis; E87.1 Hypo-osmolality and hyponatremia; T87.89 Other complications of amputation stump; E11.621 Type 2 diabetes mellitus with foot ulcer; K21.9 Gastro-esophageal reflux disease without esophagitis; J44.9 Chronic obstructive pulmonary disease, unspecified; E87.5 Hyperkalemia; F20.9 Schizophrenia, unspecified; Z96.651 Presence of right artificial knee joint; D63.1 Anemia in chronic kidney disease; T39.95XA Adverse effect of unspecified nonopioid analgesic, antipyretic and antirheumatic, initial encounter; E87.70 Fluid overload, unspecified; Z53.29 Procedure and treatment not carried out because of patient's decision for other reasons; Y83.8 Other surgical procedures as the cause of abnormal reaction of the patient, or of later complication, without mention of misadventure at the time of the procedure; L89.312 Pressure ulcer of right buttock, stage 2; L89.212 Pressure ulcer of right hip, stage 2; I25.10 Atherosclerotic heart disease of native coronary artery without angina pectoris; I73.9 Peripheral vascular disease, unspecified; Z91.15 Patient's noncompliance with renal dialysis; Z87.828 Personal history of other (healed) physical injury and trauma; Z89.411 Acquired absence of right great toe; Z88.1 Allergy status to other antibiotic agents; Z79.2 Long term (current) use of antibiotics; Z79.01 Long term (current) use of anticoagulants; Z79.82 Long term (current) use of aspirin; Z87.891 Personal history of nicotine dependence; I25.2 Old myocardial infarction
CPT/HCPCS: 36415; 36430; 36600; 71045; 73552; 73630; 80048; 80053; 80074; 82550; 82553; 82728; 82803; 82962; 83540; 83550; 83605; 83874; 84100; 84484; 85025; 85027; 85652; 86140; 86850; 86900; 86901; 86920; 90935; 90937; 93005; 94640; 94760; 96365; 96375; 99285; A6212; J1170; J1644; J2001; J2185; J2250; J2370; J2405; J2704; J3010; J7030; J7040; J7120; P9016; U0002

== ENCOUNTER 2022-01-02 11:26 | Observation (INO) | payer MEDICARE, MEDICAID ==
[~2022-01-02] VITALS: Ht 175.3 cm; Wt 103.6 kg
[~2022-01-02 11:26] MED LIST changes: +ROXICODONE TAB 55 MG PO; +VITAMIN C500 M4 PO
[2022-01-02 13:00] LABS: HEMOGLOBIN 7.5 gm/dl (14.0-17.5); RED BLOOD COUNT 2.62 M/UL (4.20-5.50); WHITE BLOOD COUNT 6.9 K/UL (4.5-11.0)
[2022-01-02] MEDS ORDERED: HYDROCODON-ACE1 EAC2 PO (16:26)
[2022-01-03 06:14] LABS: HEMOGLOBIN 7.1 gm/dl (14.0-17.5); RED BLOOD COUNT 2.52 M/UL (4.20-5.50); WHITE BLOOD COUNT 6.7 K/UL (4.5-11.0)
[2022-01-03] MEDS ORDERED: ELIQUIS2.5 MG PO (13:37)
== END 2022-01-03 20:32 | disposition home health service (06) ==
LOC: ER1 11:26 → M/S 15:27 → CDU 15:27 → M/S 21:03
PROVIDERS: Physician Assistant; ADMIT Internal Medicine
DX: R07.89 Other chest pain (principal); I48.91 Unspecified atrial fibrillation; I13.2 Hypertensive heart and chronic kidney disease with heart failure and with stage 5 chronic kidney disease, or end stage renal disease; E11.22 Type 2 diabetes mellitus with diabetic chronic kidney disease; N18.6 End stage renal disease; I50.32 Chronic diastolic (congestive) heart failure; D63.1 Anemia in chronic kidney disease; I25.10 Atherosclerotic heart disease of native coronary artery without angina pectoris; J44.9 Chronic obstructive pulmonary disease, unspecified; J96.11 Chronic respiratory failure with hypoxia; E11.51 Type 2 diabetes mellitus with diabetic peripheral angiopathy without gangrene; E78.5 Hyperlipidemia, unspecified; R60.1 Generalized edema; F17.210 Nicotine dependence, cigarettes, uncomplicated; F20.0 Paranoid schizophrenia; F12.10 Cannabis abuse, uncomplicated; Z95.5 Presence of coronary angioplasty implant and graft; Z91.19 Patient's noncompliance with other medical treatment and regimen; Z99.2 Dependence on renal dialysis; Z86.74 Personal history of sudden cardiac arrest; Z89.411 Acquired absence of right great toe; Z86.16 Personal history of COVID-19; Z89.612 Acquired absence of left leg above knee; Z89.611 Acquired absence of right leg above knee; Z88.1 Allergy status to other antibiotic agents; Z79.82 Long term (current) use of aspirin; Z79.899 Other long term (current) drug therapy; Z20.822 Contact with and (suspected) exposure to COVID-19
CPT/HCPCS: 36415; 71045; 80053; 82550; 82553; 82803; 82962; 83605; 83874; 83880; 84484; 85025; 86140; 86850; 86900; 86901; 86920; 90937; 93005; 96374; 99285; G0378; J1644; P9016; U0002

== ENCOUNTER 2022-01-27 12:31 | Emergency (ER) | payer MEDICARE ==
[~2022-01-27 12:31] MED LIST changes: +ELIQUIS2.5 MG PO; +HYDROCODON-ACE1 EAC2 PO
[2022-01-27 14:53] LABS: HEMOGLOBIN 9.2 gm/dl (14.0-17.5); RED BLOOD COUNT 3.18 M/UL (4.20-5.50); WHITE BLOOD COUNT 8.1 K/UL (4.5-11.0)
== END 2022-01-27 18:50 | disposition home or self-care (01) ==
LOC: ER1 12:31
PROVIDERS: Student in an Organized Health Care Education/Training Program
DX: I13.2 Hypertensive heart and chronic kidney disease with heart failure and with stage 5 chronic kidney disease, or end stage renal disease (principal); I50.9 Heart failure, unspecified; N18.6 End stage renal disease; J44.9 Chronic obstructive pulmonary disease, unspecified; J90 Pleural effusion, not elsewhere classified
CPT/HCPCS: 36600; 71045; 80053; 82550; 82553; 82803; 83880; 84484; 85025; 93005; 99285

== ENCOUNTER 2022-02-18 19:28 | Observation (INO) | payer MEDICARE, MEDICAID ==
[~2022-02-18] VITALS: Ht 152.4 cm; Wt 93.5 kg
[2022-02-18 20:01] LABS: HEMOGLOBIN 8.4 gm/dl (14.0-17.5); RED BLOOD COUNT 2.92 M/UL (4.20-5.50); WHITE BLOOD COUNT 4.2 K/UL (4.5-11.0)
[2022-02-19 04:53] LABS: HEMOGLOBIN 8.1 gm/dl (14.0-17.5); RED BLOOD COUNT 2.79 M/UL (4.20-5.50); WHITE BLOOD COUNT 3.7 K/UL (4.5-11.0)
[2022-02-19] MEDS ORDERED: BRILINTA90 MG PO (09:21)
[2022-02-19] MEDS ORDERED: AMIODARONE HCL200 MG PO (09:23)
[2022-02-20 04:37] LABS: HEMOGLOBIN 7.7 gm/dl (14.0-17.5); RED BLOOD COUNT 2.68 M/UL (4.20-5.50)
[2022-02-21 04:51] LABS: HEMOGLOBIN 7.7 gm/dl (14.0-17.5); RED BLOOD COUNT 2.68 M/UL (4.20-5.50)
[2022-02-21 05:06] LABS: WHITE BLOOD COUNT 7.9 K/UL (4.5-11.0)
[2022-02-22] MEDS ORDERED: MEDROL4 MG PO (08:30)
== END 2022-02-22 13:12 | disposition home health service (06) ==
LOC: ER1 19:28 → CCU 21:37 → CDU 21:37 → PROG CARE 21:37 → CCU 21:37 → PROG CARE 02-21 12:48
PROVIDERS: Family Medicine; Internal Medicine; Internal Medicine Nephrology; ADMIT Internal Medicine
DX: J96.21 Acute and chronic respiratory failure with hypoxia (principal); J96.22 Acute and chronic respiratory failure with hypercapnia; E87.70 Fluid overload, unspecified; I13.2 Hypertensive heart and chronic kidney disease with heart failure and with stage 5 chronic kidney disease, or end stage renal disease; E11.22 Type 2 diabetes mellitus with diabetic chronic kidney disease; N18.6 End stage renal disease; I50.32 Chronic diastolic (congestive) heart failure; D63.1 Anemia in chronic kidney disease; E87.1 Hypo-osmolality and hyponatremia; F20.9 Schizophrenia, unspecified; E87.5 Hyperkalemia; I48.0 Paroxysmal atrial fibrillation; E11.42 Type 2 diabetes mellitus with diabetic polyneuropathy; F17.210 Nicotine dependence, cigarettes, uncomplicated; J44.1 Chronic obstructive pulmonary disease with (acute) exacerbation; I25.10 Atherosclerotic heart disease of native coronary artery without angina pectoris; E11.51 Type 2 diabetes mellitus with diabetic peripheral angiopathy without gangrene; Z20.822 Contact with and (suspected) exposure to COVID-19; Z99.2 Dependence on renal dialysis; Z91.15 Patient's noncompliance with renal dialysis; Z91.19 Patient's noncompliance with other medical treatment and regimen; Z86.16 Personal history of COVID-19; Z99.81 Dependence on supplemental oxygen; Z88.1 Allergy status to other antibiotic agents; Z79.82 Long term (current) use of aspirin; Z79.899 Other long term (current) drug therapy; Z95.5 Presence of coronary angioplasty implant and graft; Z89.512 Acquired absence of left leg below knee; Z89.511 Acquired absence of right leg below knee; I47.2 Ventricular tachycardia; Z95.820 Peripheral vascular angioplasty status with implants and grafts
CPT/HCPCS: 36415; 36600; 71045; 80048; 80053; 82550; 82553; 82803; 82962; 83605; 83735; 83880; 84100; 84132; 84484; 85025; 86140; 87040; 90937; 93005; 94640; 94660; 94664; 94760; 96374; 96375; 99285; G0378; J0885; J1644; J2920; Q5106; U0002

== ENCOUNTER 2022-02-28 18:35 | Inpatient (IN) | payer MEDICARE ==
[~2022-02-28 18:35] MED LIST changes: +MEDROL4 MG PO
[2022-02-28 19:20] LABS: HEMOGLOBIN 8.9 gm/dl (14.0-17.5); RED BLOOD COUNT 3.08 M/UL (4.20-5.50)
--- NOTE | 2022-03-01 00:49 | NUR ---
PATIENT HAS MANY SKIN ISSUES, IMMOBILE, PUT WAFFLE MATTRESS ON PATIENT AND IS A Q2 TURN WCTM
[2022-03-01 03:48] LABS: HEMOGLOBIN 8.7 gm/dl (14.0-17.5); RED BLOOD COUNT 2.98 M/UL (4.20-5.50); WHITE BLOOD COUNT 8.1 K/UL (4.5-11.0)
--- NOTE | 2022-03-01 05:25 | NUR ---
PATIENT HAD CRITICAL K OF >[address] JACKSON, NO ORDERS AT THIS TIME PATIENT ALSO HAD CRITICAL GLUCOSE OF 40, GAVE 1 AMP OF D50, ENCOURAGING PO INTAKE BY PT...WCTM
--- NOTE | 2022-03-01 13:05 | NUR ---
DR. BEY MADE AWARE THAT PATIENT IS IN DIALYSIS, MORNING MEDS TO BE GIVEN LATE.
--- NOTE | 2022-03-01 19:32 | NUR ---
PATIENT NOTED TO HAVE HAD AN 8 BEAT RUN OF NSVT, NORMAL SINUS RHYTHM, THEN 3 MORE RUNS OF NSVT. RN NOTIFIED DR. BEY. ORDERED METORPOLOL 12.5 MG PO BID AND A CARDIOVASCULAR CONSULT FOR TOMORROW.
[2022-03-02 07:20] LABS: HEMOGLOBIN 8.2 gm/dl (14.0-17.5); RED BLOOD COUNT 2.84 M/UL (4.20-5.50); WHITE BLOOD COUNT 8.4 K/UL (4.5-11.0)
[2022-03-06 04:11] LABS: HEMOGLOBIN 8.2 gm/dl (14.0-17.5); RED BLOOD COUNT 2.82 M/UL (4.20-5.50); WHITE BLOOD COUNT 8.7 K/UL (4.5-11.0)
[2022-03-06] MEDS ORDERED: LOPRESSOR 25 MG25 MG PO (12:25)
== END 2022-03-06 16:50 | disposition home or self-care (01) | DRG 291 ==
LOC: ER1 18:35 → MED SURG 4 20:28 → CDU 20:28 → MED SURG 4 22:30
PROVIDERS: Internal Medicine; Internal Medicine Infectious Disease; ADMIT Internal Medicine
PROC: 5A09357 Assistance with Respiratory Ventilation, Less than 24 Consecutive Hours, Continuous Positive Airway Pressure (ICD-10-PCS; principal; 2022-02-28)
PROC: 5A1D70Z Performance of Urinary Filtration, Intermittent, Less than 6 Hours Per Day (ICD-10-PCS; 2022-03-01)
PROC: 5A09357 Assistance with Respiratory Ventilation, Less than 24 Consecutive Hours, Continuous Positive Airway Pressure (ICD-10-PCS; 2022-03-02)
PROC: 5A1D70Z Performance of Urinary Filtration, Intermittent, Less than 6 Hours Per Day (ICD-10-PCS; 2022-03-03)
PROC: 5A09357 Assistance with Respiratory Ventilation, Less than 24 Consecutive Hours, Continuous Positive Airway Pressure (ICD-10-PCS; 2022-03-04)
PROC: 5A09357 Assistance with Respiratory Ventilation, Less than 24 Consecutive Hours, Continuous Positive Airway Pressure (ICD-10-PCS; 2022-03-05)
PROC: 5A1D70Z Performance of Urinary Filtration, Intermittent, Less than 6 Hours Per Day (ICD-10-PCS; 2022-03-05)
DX: I13.2 Hypertensive heart and chronic kidney disease with heart failure and with stage 5 chronic kidney disease, or end stage renal disease (principal); N18.6 End stage renal disease; I50.33 Acute on chronic diastolic (congestive) heart failure; J96.01 Acute respiratory failure with hypoxia; I47.1 Supraventricular tachycardia; J44.1 Chronic obstructive pulmonary disease with (acute) exacerbation; E87.2 Acidosis; E87.1 Hypo-osmolality and hyponatremia; Z20.822 Contact with and (suspected) exposure to COVID-19; L89.322 Pressure ulcer of left buttock, stage 2; E78.5 Hyperlipidemia, unspecified; E11.42 Type 2 diabetes mellitus with diabetic polyneuropathy; M47.896 Other spondylosis, lumbar region; Z96.651 Presence of right artificial knee joint; E11.51 Type 2 diabetes mellitus with diabetic peripheral angiopathy without gangrene; L89.022 Pressure ulcer of left elbow, stage 2; D63.1 Anemia in chronic kidney disease; F20.9 Schizophrenia, unspecified; E11.22 Type 2 diabetes mellitus with diabetic chronic kidney disease; E87.70 Fluid overload, unspecified; I25.10 Atherosclerotic heart disease of native coronary artery without angina pectoris; E87.5 Hyperkalemia; F17.210 Nicotine dependence, cigarettes, uncomplicated; I48.0 Paroxysmal atrial fibrillation; G47.33 Obstructive sleep apnea (adult) (pediatric); Z91.14 Patient's other noncompliance with medication regimen; Z95.5 Presence of coronary angioplasty implant and graft; Z79.01 Long term (current) use of anticoagulants; Z87.01 Personal history of pneumonia (recurrent); Z89.512 Acquired absence of left leg below knee; Z89.511 Acquired absence of right leg below knee; Z99.81 Dependence on supplemental oxygen; Z88.1 Allergy status to other antibiotic agents; Z83.3 Family history of diabetes mellitus; Z80.9 Family history of malignant neoplasm, unspecified; Z71.6 Tobacco abuse counseling; Z91.15 Patient's noncompliance with renal dialysis; Z79.82 Long term (current) use of aspirin; Z82.49 Family history of ischemic heart disease and other diseases of the circulatory system
CPT/HCPCS: 36415; 36600; 71045; 80048; 80053; 82550; 82553; 82728; 82803; 82962; 83540; 83550; 83735; 84100; 84132; 84484; 85025; 85027; 90935; 90937; 93005; 94640; 94660; 94760; 96374; 96375; 99284; J0610; P9047; Q5106

== ENCOUNTER 2022-03-27 12:34 | Observation (INO) | payer MEDICARE, MEDICAID ==
[~2022-03-27] VITALS: Ht 127 cm; Wt 81.6 kg
[2022-03-27 15:29] LABS: HEMOGLOBIN 9.4 gm/dl (14.0-17.5); RED BLOOD COUNT 3.25 M/UL (4.20-5.50); WHITE BLOOD COUNT 11.6 K/UL (4.5-11.0)
[2022-03-27] MEDS ORDERED: ASPIRIN EC81 MG PO (18:02)
[2022-03-27] MEDS ORDERED: LIPITOR40 MG PO (18:02)
[2022-03-27] MEDS ORDERED: METOPROLOL TART25 MG PO (18:03)
[2022-03-27] MEDS ORDERED: PROTONIX 40 MG40 M1 PO (18:03)
[2022-03-27] MEDS ORDERED: BRILINTA90 MG PO (18:04)
[2022-03-28 03:00] LABS: HEMOGLOBIN 8.4 gm/dl (14.0-17.5); RED BLOOD COUNT 2.94 M/UL (4.20-5.50); WHITE BLOOD COUNT 8.8 K/UL (4.5-11.0)
[2022-03-29 11:16] LABS: HBSAG SCREEN Negative (Negative); HCV AB 0.2 (0.0-0.9); HEP A AB, IGM Negative (Negative); HEP B CORE AB, IGM Negative (Negative)
[2022-03-30 03:10] LABS: BUN/CREATININE RATIO 29 (0-10)
== END 2022-03-30 10:48 | disposition home or self-care (01) ==
LOC: ER1 12:34 → PROG CARE 17:31 → M/S 17:31 → CDU 17:31 → M/S 21:20 → PROG CARE 03-28 17:05
PROVIDERS: Internal Medicine Nephrology; Physician Assistant; ADMIT Internal Medicine
DX: E87.5 Hyperkalemia (principal); E87.70 Fluid overload, unspecified; I13.2 Hypertensive heart and chronic kidney disease with heart failure and with stage 5 chronic kidney disease, or end stage renal disease; E11.22 Type 2 diabetes mellitus with diabetic chronic kidney disease; N18.6 End stage renal disease; I50.33 Acute on chronic diastolic (congestive) heart failure; D63.1 Anemia in chronic kidney disease; J96.21 Acute and chronic respiratory failure with hypoxia; E11.21 Type 2 diabetes mellitus with diabetic nephropathy; I25.2 Old myocardial infarction; I25.10 Atherosclerotic heart disease of native coronary artery without angina pectoris; E11.51 Type 2 diabetes mellitus with diabetic peripheral angiopathy without gangrene; J44.9 Chronic obstructive pulmonary disease, unspecified; I48.0 Paroxysmal atrial fibrillation; E78.5 Hyperlipidemia, unspecified; F20.0 Paranoid schizophrenia; F12.10 Cannabis abuse, uncomplicated; I08.1 Rheumatic disorders of both mitral and tricuspid valves; F17.210 Nicotine dependence, cigarettes, uncomplicated; E87.1 Hypo-osmolality and hyponatremia; R11.2 Nausea with vomiting, unspecified; I47.2 Ventricular tachycardia; I48.91 Unspecified atrial fibrillation; Z99.2 Dependence on renal dialysis; Z91.15 Patient's noncompliance with renal dialysis; Z91.14 Patient's other noncompliance with medication regimen; Z89.512 Acquired absence of left leg below knee; Z89.511 Acquired absence of right leg below knee; Z86.19 Personal history of other infectious and parasitic diseases; Z88.1 Allergy status to other antibiotic agents; Z95.5 Presence of coronary angioplasty implant and graft; Z79.4 Long term (current) use of insulin; Z86.16 Personal history of COVID-19; Z79.82 Long term (current) use of aspirin; Z79.899 Other long term (current) drug therapy; Z99.81 Dependence on supplemental oxygen
CPT/HCPCS: 36415; 36600; 71045; 80048; 80053; 80074; 82140; 82550; 82553; 82728; 82803; 82962; 83540; 83550; 83880; 84100; 84484; 85025; 85027; 90935; 90937; 93005; 94640; 94660; 94664; 94760; 96365; 96366; 96372; 96375; 96376; 99285; A6212; C9113; G0378; J1644; J2405; P9047

== ENCOUNTER 2022-04-15 07:07 | Inpatient (IN) | payer MEDICARE, MEDICAID, OTHER ==
[~2022-04-15] VITALS: Ht 127 cm; Wt 102.5 kg
[2022-04-15 09:20] LABS: RED BLOOD COUNT 3.97 M/UL (4.20-5.50); WHITE BLOOD COUNT 8.6 K/UL (4.5-11.0)
[2022-04-15 23:05] LABS: HEMOGLOBIN 9.7 gm/dl (14.0-17.5); WHITE BLOOD COUNT 10.6 K/UL (4.5-11.0)
[2022-04-15 23:06] LABS: RED BLOOD COUNT 3.41 M/UL (4.20-5.50)
[2022-04-16 02:20] LABS: HEMOGLOBIN 9.5 gm/dl (14.0-17.5); RED BLOOD COUNT 3.3 M/UL (4.20-5.50); WHITE BLOOD COUNT 10.6 K/UL (4.5-11.0)
--- NOTE | 2022-04-16 14:30 | NUR ---
Patient went into [facility] at 12:59 ACLS protocol initiated, see code sheet for detailed report. , respiratory therapy, and nursing staff at bedside.
== END 2022-04-16 19:00 | disposition expired | DRG 871 ==
LOC: ER1 07:07 → CCU 10:48 → ER1 15:50 → CCU 04-16 19:00
PROVIDERS: Emergency Medicine; Internal Medicine; Physician Assistant; ADMIT Internal Medicine
PROC: 0W9G3ZZ Drainage of Peritoneal Cavity, Percutaneous Approach (ICD-10-PCS; principal; 2022-04-15)
PROC: 3E03329 Introduction of Other Anti-infective into Peripheral Vein, Percutaneous Approach (ICD-10-PCS; 2022-04-15)
PROC: 5A12012 Performance of Cardiac Output, Single, Manual (ICD-10-PCS; 2022-04-15)
PROC: 02HV33Z Insertion of Infusion Device into Superior Vena Cava, Percutaneous Approach (ICD-10-PCS; 2022-04-15)
PROC: 3E043XZ Introduction of Vasopressor into Central Vein, Percutaneous Approach (ICD-10-PCS; 2022-04-15)
PROC: 5A1935Z Respiratory Ventilation, Less than 24 Consecutive Hours (ICD-10-PCS; 2022-04-15)
PROC: 5A1D70Z Performance of Urinary Filtration, Intermittent, Less than 6 Hours Per Day (ICD-10-PCS; 2022-04-15)
DX: A41.9 Sepsis, unspecified organism (principal); J96.22 Acute and chronic respiratory failure with hypercapnia; N18.6 End stage renal disease; J96.21 Acute and chronic respiratory failure with hypoxia; R65.21 Severe sepsis with septic shock; I13.2 Hypertensive heart and chronic kidney disease with heart failure and with stage 5 chronic kidney disease, or end stage renal disease; J44.0 Chronic obstructive pulmonary disease with (acute) lower respiratory infection; E87.1 Hypo-osmolality and hyponatremia; D68.9 Coagulation defect, unspecified; I50.32 Chronic diastolic (congestive) heart failure; I47.2 Ventricular tachycardia; F20.0 Paranoid schizophrenia; N17.9 Acute kidney failure, unspecified; G93.40 Encephalopathy, unspecified; Z66 Do not resuscitate; I73.9 Peripheral vascular disease, unspecified; E11.22 Type 2 diabetes mellitus with diabetic chronic kidney disease; E11.69 Type 2 diabetes mellitus with other specified complication; F17.200 Nicotine dependence, unspecified, uncomplicated; E87.70 Fluid overload, unspecified; E87.5 Hyperkalemia; I95.9 Hypotension, unspecified; E11.51 Type 2 diabetes mellitus with diabetic peripheral angiopathy without gangrene; E11.649 Type 2 diabetes mellitus with hypoglycemia without coma; Z96.651 Presence of right artificial knee joint; K74.60 Unspecified cirrhosis of liver; I46.9 Cardiac arrest, cause unspecified; I25.10 Atherosclerotic heart disease of native coronary artery without angina pectoris; J44.9 Chronic obstructive pulmonary disease, unspecified; R57.0 Cardiogenic shock; R74.01 Elevation of levels of liver transaminase levels; I50.9 Heart failure, unspecified; Z91.15 Patient's noncompliance with renal dialysis; Z99.2 Dependence on renal dialysis; Z89.512 Acquired absence of left leg below knee; Z89.511 Acquired absence of right leg below knee; Z82.49 Family history of ischemic heart disease and other diseases of the circulatory system; Z83.3 Family history of diabetes mellitus; Z95.828 Presence of other vascular implants and grafts; Z95.5 Presence of coronary angioplasty implant and graft; Z89.411 Acquired absence of right great toe; Z95.1 Presence of aortocoronary bypass graft; Z79.899 Other long term (current) drug therapy; Z79.82 Long term (current) use of aspirin; Z88.1 Allergy status to other antibiotic agents; Z86.16 Personal history of COVID-19; Z51.5 Encounter for palliative care
CPT/HCPCS: ECHO; 31500; 36415; 36600; 71045; 80048; 80053; 80202; 82550; 82553; 82803; 82962; 83605; 83735; 84100; 84484; 85025; 85610; 87040; 92950; 93005; 93306; 94002; 94660; 94760; 96374; 96375; 99285; C9113; G0257; J0171; J0610; J1720; J2185; J2370; J2704; J3370; J7030; J7070; P9047